=== PATIENT | female | born 1950 | race Caucasian/White ===

== ENCOUNTER 2016-03-10 07:22 | Inpatient (IN) | payer OTHER ==
--- NOTE | 2016-03-10 07:17 | EDPHY ---
H & P HPI/ROS: CHIEF COMPLAINT: Multiple seizures. HISTORY OF PRESENT ILLNESS: This is a 65-year-old female with no seizure history presenting via EMS for multiple seizures this morning. She hit her head ice skating 2 days ago. This morning at 0650 she experienced a 5-8 minute long seizure witnessed by her . Afterwards she was post-ictal but could walk. At 0708 she had a 1 minute tonic-clonic seizure and has been post-ictal ever since. She is responsive to painful stimuli but cannot answer questions and thus the history is limited. EMS established an IV en route and administered 5mg IM Versed. REVIEW OF SYSTEMS: Aside from elements discussed in the HPI, a comprehensive 10-point review of systems was reviewed and is negative. PAST MEDICAL HISTORY: denies. SOCIAL HISTORY: Here with . VITAL SIGNS: Reviewed by me GENERAL: Well-developed. HEENT: Patient has no gag reflex. Atraumatic. Eyes: Pupils 2mm reactive. No icterus, no injection, no nystagmus, no roving eye movements. Mouth: dry mucous membranes. No erythema or lesions. Neck: supple with no adenopathy. LUNGS: Clear to auscultation bilaterally, no wheezes, rhonchi or rales. CARDIAC: Tachycardic. Regular rhythm, no rubs, murmurs or gallops. ABDOMEN: Soft, nontender, nondistended, bowel sounds normal. BACK: No CVA tenderness. EXTREMITIES: No trauma. No edema. Range of motion is normal throughout. NEURO: Unresponsive, snoring respirations, responds to painful stimuli. SKIN: Warm and dry, no rash. Portions of this note were transcribed by a medical dermatologist. I personally performed a history, physical exam, medical decision making, and confirmed accuracy of information the transcribed note. Source: EMS Exam Limitations: Clinical condition Constitutional: Initial Vital Signs Heart Rate 130 H 03/10/16 07:25 Respiratory Rate 20 03/10/16 07:25 Blood Pressure 169/84 H 03/10/16 07:25 O2 Sat (%) 97 03/10/16 07:25 O2 Delivery Mode Ventilator O2 (L/minute) 15 Allergies/Adverse Reactions: No Known Allergies Allergy (Unverified 03/10/16 08:17) Home Medications: Medication Instructions Recorded Cholecalciferol Vit D3 [Vitamin D3 1,000 units PO DAILY 03/10/16 (*)] Ferrous Sulfate [Ferrous Sulf 325 325 mg PO DAILY 03/10/16 MG (*)] Multivitamins [Multivitamin (*)] 1 each PO DAILY 03/10/16 [place]-3 Fatty Acids [Fish Oil 1000 1,000 mg PO DAILY 03/10/16 mg (*)] Medical Decision Making - Diagnostics EKG Interpretation: 12-LEAD EKG: Please see the full report in [facility]. My interpretation: Sinus tachycardia, rate 115. ST depression anterolaterally. Imaging: X-ray of the chest was obtained. I viewed the images myself on the PACS system. My interpretation of the images is: good ETT placement. The radiologist interpretation is pending at this time. Study: CT of the head. Indication: Seizures, trauma. Results: Hemorrhage left frontal lobe. The study was read by the radiologist, Dr. Ayala. I viewed the images myself on the PACS system. Procedures: Procedure: Rapid sequence intubation. Indication for the procedure was seizures. The patient was preoxygenated with 100% oxygen by face mask. The patient was given the following IV medications: 20mg IV Etomidate, 120mg IV succinylcholine. The patient was orally endotracheally intubated under direct visualization with a 7.5 ETT. In line stabilization was performed during the procedure. Tracheal intubation was confirmed with misting on the tube; breath sounds were auscultated equally bilaterally; appropriate color change with [place] Tidal CO2 detector. Chest X-ray shows ETT in good position. The procedure was performed by myself, Dr. Chaudhry. ED Course/Re-evaluation: 0720: I met EMS on arrival and obtained a report from the kettle operator. 0727: RT at bedside. 0729: 20mg IV Etomidate and 120mg IV Succinylcholine administered. Second IV established in right hand. 0730: Patient intubated with a 7.5 ETT (see procedure note). 0733: ISTAT shows creatine of 1.0 and normal electrolytes. EKG taken. 0735: Chest x-ray taken. 0740: I spoke to the patient's . He reported no past medical history including no hypertension or illicit drug use. He told me they were ice skating two days ago and the patient reported in the evening that she had hit the back of her head, but this accident was unwitnessed by the . She does not drink alcohol frequently and had half a glass of wine last night. Labs were ordered on the patient. 0800: Patient has returned from CT. She is moving her arms more spontaneously at this time. CT scan demonstrates hemorrhage, unclear epidural versus subdural versus hemorrhage into a mass. 0810: Consulted with Dr. Klein, neurosurgery. He has reviewed the patient's images and recommends MRI. 0854: Consulted with Isabelle Katz, hospitalist. 0922: Consulted with [facility] who reports that the patient has not had any labs since 2007. I informed them the patient is being admitted to the ICU here. 0925: Consulted with Dr. Sun, neurology. Patient admitted to the ICU following her MRI. Differential Diagnosis: Differential diagnosis of the patient's seizure was considered including but not limited to electrolyte abnormality, intracranial hemorrhage, trauma, mass, head injury, meningitis, encephalitis, and breakthrough seizure. Critical Care Time: I spent a total of 45 minutes of critical care time including but not limited to obtaining history, performing a physical exam, ordering interventions and the bedside monitoring of those interventions, collecting and interpreting tests and discussion with consultants but not including time spent performing procedures. - Data Points Laboratory Results: Laboratory Results 03/10/16 07:31 03/10/16 07:31 Medications Given: Discontinued Medications Etomidate (Etomidate) 20 mg IVP EDNOW ONE Stop: 03/10/16 08:10 Last Admin: 03/10/16 07:29 Dose: 20 mg Sodium Chloride (Ns) 1,000 mls @ 0 mls/hr IV ONCE ONE PRN Reason: Wide Open Stop: 03/10/16 08:11 Last Admin: 03/10/16 07:45 Dose: 1,000 mls Levetiracetam 1,000 mg/ Sodium (Chloride) 110 mls @ 440 mls/hr IV EDNOW ONE Stop: 03/10/16 09:05 Last Admin: 03/10/16 10:30 Dose: 110 mls Succinylcholine Chloride (Quelicin) 120 mg IVP EDNOW ONE Stop: 03/10/16 08:10 Last Admin: 03/10/16 07:30 Dose: 120 mg Departure - Departure Disposition: [facility] Clinical Impression: Seizures, Intracranial hemorrhage Condition: Serious Report Scribed for: Lola Chaudhry Report Scribed by: Victor M Sampson Date of Report: 03/10/16 Time of Report: 07:17
[2016-03-10] MEDS ORDERED: PROPOFOL/EMULSION 1,000 MG/100 ML BOTTLE IV ONE (07:30)
[2016-03-10] MEDS: PROPOFOL/EMULSION 100 ML IV SCH ×10 (07:40→10:31)
[2016-03-10] MEDS ORDERED: SUCCINYLCHOLINE CHLORIDE*ANESTHESIA ONLY*200 MG/10 ML SYR IVP ONE (07:52)
[2016-03-10] MEDS ORDERED: ETOMIDATE 40 MG/20 ML INJ ONE (07:52)
[2016-03-10 08:01] LABS: % IMMATURE GRANULYOCYTES 0.6 % (0.0-1.1); ABSOLUTE IMMATURE GRANULOCYTES 0.06 10^3/uL (0.00-0.10); ADD DIFF? NO; ADD MORPH? NO; ADD SCAN? NO; ATYPICAL LYMPHOCYTE FLAG 10 (0-99); FRAGMENT RBC FLAG 0 (0-99); HEMATOCRIT 49.1 % (38.0-47.0); HEMOGLOBIN 16.6 g/dL (12.6-16.3); LEFT SHIFT FLG 0 (0-99); LIPEMIA HEMOLYSIS FLAG 90 (0-99); MEAN CELL HEMOGLOBIN 32.2 pg (27.9-34.1); MEAN CELL HEMOGLOBIN CONCENTR. 33.8 g/dL (32.4-36.7); MEAN CELL VOLUME 95.3 fL (81.5-99.8); MEAN PLATELET VOLUME 11.4 fL (8.7-11.7); PLATELET CLUMPS FLAG 10 (0-99); PLATELET COUNT 57 10^3/uL (150-400); RED BLOOD CELL COUNT 5.15 10^6/uL (4.18-5.33); RED CELL DISTRIBUTION WIDTH 12.4 % (11.5-15.2)
[2016-03-10 08:03] LABS: ANION GAP 27 mEq/L (8-16); CALCIUM 9.3 mg/dL (8.5-10.4); CARBON DIOXIDE 13 mEq/l (22-31); CHLORIDE 105 mEq/L (97-110); GLOMERULAR FILTRATION RATE 55; GLUCOSE 132 mg/dL (70-100); POTASSIUM 3.9 mEq/L (3.5-5.2); SODIUM 145 mEq/L (134-144)
[2016-03-10] MEDS ORDERED: SUCCINYLCHOLINE CHLORIDE 200 MG/10 ML VIAL IVP ONE (08:09)
[2016-03-10] MEDS ORDERED: ETOMIDATE 20 MG/10 ML VIAL IVP ONE (08:09)
[2016-03-10] MEDS ORDERED: NS 1,000 ML IV ONE (08:10)
[2016-03-10 08:14] LABS: TROPONIN I < 0.012 ng/mL (0-0.034)
[2016-03-10 08:17] LABS: INR 1.01 (0.83-1.16); PROTIME(PATIENT) 13.2 SEC (12.0-15.0)
[2016-03-10 08:27] LABS: BASE EXCESS -7.5 mEq/L (-2.5-2.5); BICARBONATE 19 mEq/L (22-26); MEASURED OXYGEN SATURATION 96 % (92-95); PCO2 41 mmHg (34-38); PO2 98 mmHg (65-75); TCO2 20 mEq/L (23-27)
[2016-03-10 08:29] LABS: O2 CONCENTRATIION 100 % (0-100); P/F RATIO 98 RATIO; SIMV YES
--- NOTE | 2016-03-10 08:41 | CPEKG ---
Heart Rate: 115 RR Interval: 522 P-R Interval: 188 QRSD Interval: 86 QT Interval: 320 QTC Interval: 443 P [place]: 62 QRS [place]: 85 T Wave [place]: 13 EKG Severity - BORDERLINE ECG - EKG Impression: SINUS TACHYCARDIA EKG Impression: BORDERLINE RIGHT AXIS DEVIATION EKG Impression: MINIMAL ST DEPRESSION, ANTEROLATERAL LEADS Electronically Signed By: Lola Chaudhry 10-Mar-2016 18:11:56
[2016-03-10] MEDS ORDERED: levETIRAcetam 1,000 MG in NS 100 ML IV ONE (08:51)
--- NOTE | 2016-03-10 09:08 | DX ---
Chest, One View Portable March 10, 2016 at 0736 Hours History: Endotracheal, seizures, close head injury two days ago. Comparison: None. Findings: Cardiac silhouette is normal in size. No pneumonia, congestive heart failure, pleural effu vipul, or pneumothorax. Endotracheal tube 2 cm above the juliette. Impressions: 1. Endotracheal tube above the juliette. 2. No pneumothorax or definite pulmonary contusion.
--- NOTE | 2016-03-10 09:21 | CT ---
CT Brain (Without Contrast) March 10, 2016 at 0755 Hours History: Seizures, closed head injury, fall ice skating two days ago. Comparison: None. Technique: Axial computed tomographic images of the brain without contrast. Dose reduction techniques were utilized. Findings: Acute extraaxial hemorrhage in the left frontal convexity parafalcine region, measuring 3 x 2.2 x 1.6 cm, resulting in mass effect on the left frontal lobe which is displaced inferiorly. This appears round and may represent subdural or epidural hematoma. There is an adjacent left parafalcine subdural hematoma extending anteriorly and posteriorly, measuring up to 4 mm thick. Resulting mass ef fect from the left frontal extraaxial hemorrhage results in 4 mm of rightward midline shift in the up per falx region, although the lateral ventricles appear not significantly displaced. No hydrocephalus . No intraventricular hemorrhage. Smaller region of subarachnoid hemorrhage more anteriorly in the le ft frontal lobe region. No definite intraparenchymal hemorrhage. No evidence of acute infarct. No shaniqua dence of skull fracture. Paranasal sinuses and mastoid air cells are clear. Impressions: 1. Multiple foci of extraaxial hemorrhage along the left frontal convexity with a more focal 3 x 2.2 x 1.6 cm ovoid extraaxial acute hemorrhage, resulting in mild mass effect. This may represent a compl ex epidural or subdural hematoma versus less likely hemorrhage from extraaxial neoplasm or meningioma . 2. Left frontal parafalcine subdural hematoma and additional regions of subarachnoid hemorrhage with mild midline shift. Findings and recommendations discussed with emergency department physician, Dr. Lola Chaudhry at 0805 hours today. Findings also discussed with Dr. Klein, neurosurgery. Final report concurs with initial preliminary interpretation. A test result has been communicated to a licensed care provider and documented in [facility], 10:01:36 A M, 03/10/2016, [facility] Message ID [id number].
[2016-03-10] MEDS ORDERED: GADOBUTROL 10 ML VIAL IVP ONE (09:24)
[2016-03-10] MEDS ORDERED: niCARdipine/NACL 200 ML IV PRN (09:28)
[2016-03-10] MEDS ORDERED: NS W/ 20 KCl/L 1,000 ML IV SCH (09:30)
[2016-03-10 09:45] LABS: ATYPICAL LYMPHOCYTE FLAG 0 (0-99); FRAGMENT RBC FLAG 0 (0-99); LEFT SHIFT FLG 0 (0-99); LIPEMIA HEMOLYSIS FLAG 90 (0-99)
[2016-03-10 09:48] LABS: PLATELET CLUMPS FLAG 300 (0-99)
--- NOTE | 2016-03-10 10:37 | GHP ---
[f rep st] HISTORY AND PHYSICAL DATE OF ADMISSION: 03/10/2016 ER Consultation/H and P REASON FOR EVALUATION: Altered mental status status post seizure with prior history of head injury 2 days ago. HISTORY OF PRESENT ILLNESS: Please note the following information was obtained from the patient's as well as Dr. Chaudhry, the emergency room physician , as the patient was unable to provide it herself secondary to being intubated. This is an otherwise very healthy 65-year-old woman who was otherwise in very good health. She was out ice skating approximately 2 days ago with her grandchildren when she did fall and hit her head striking the ice. She did not make a big deal of this and just noted it to her the following morning when she had a goose egg on the posterior aspect of her scalp. She had been doing well for approximately 2 days, and then was having coffee and reading the paper this morning with her when he noticed that she was not responding. She was noted to have clonic seizures. There was no traumatic event and he lowered her to the ground, and EMS was called. She was brought by EMS to [facility] for further evaluation and management. She underwent a head CT without contrast, at which point she was found to have an extraaxial lesion approximately 2 cm in size over the left frontal lobe and, therefore, neurosurgical consult was requested. She was given Versed en route by EMS and is currently on propofol, and is intubated upon my evaluation. REVIEW OF SYSTEMS: A complete 10-point review of systems was reviewed from the patient's medical record and negative except for that in the HPI. PAST MEDICAL HISTORY: Negative. SOCIAL HISTORY: The patient is . No tobacco use. FAMILY HISTORY: Negative for any brain tumors or aneurysms. PHYSICAL EXAMINATION: VITAL SIGNS: Heart rate is 130, respiratory rate is 20, blood pressure 116/84. O2 sat 97%, currently intubated with O2 15 L/minute. GENERAL: The patient is lying on the gurney, is currently intubated. NEUROLOGIC: Her pupils are approximately 5 mm bilaterally and briskly reactive in both direct and consensual examination. Her extraocular movements appear to be intact. Throughout the course of the examination, I have the patient's sedation turned off and she is very purposeful in trying to grab for her ET tube. She is not following commands at the moment but is very purposeful. She opens her eyes to voice, whereas previously she was not opening her eyes or moving to stimulation upon my first encounter with her. She is moving all 4 extremities symmetrically and appears to be purposeful. The remainder of the neurologic examination is deferred secondary to the patient's inability to participate and being intubated and sedated. MEDICAL IMAGING: The patient underwent a head CT without contrast which was reviewed by me in the [facility] PACS system. There is demonstration of some traumatic subarachnoid hemorrhage as well as a left frontal approximately 2.5 X 3 cm extraaxial hyperdensity with some focal mass affect on the left frontal lobe. It appears to be a loculated lesion consistent with a hemorrhage within a brain tumor versus extraaxial just hemorrhage, organized and loculated. No skull fractures identified. No other midline shift or mass affect identified. LABS: White count is 9.79, hematocrit 49.1, platelets are 57. INR is 1.01, PT is 13.1. Sodium 145, potassium 3.9, BUN of 18 and creatinine of 1.8. MEDICATIONS: None for the patient. ALLERGIES: No known drug allergies. ASSESSMENT AND PLAN: The patient is otherwise a very healthy 65-year-old woman who presents to the emergency department with several seizures and a history of trauma approximately 2 days ago with a left frontal extraaxial mass causing very focal mass affect with no other skull fractures or midline shift. Her platelets are noted to be 57. At this point, I think the patient's altered mental status is more secondary to her seizures and less so to the extraaxial mass. I did review the films with her who is at the bedside. At this point, we are going to obtain a MRI with and without contrast as well as an MRV to further delineate this lesion. We will also transfuse the patient 1 pack of platelets to ensure that the platelet count is closer to 80,000 and higher with the recent trauma and possible hemorrhage. At this point, the patient appears to be waking up and we will obtain a neurology consult to help manage her seizure medications, although we will load her with Keppra 1000 mg in the ER this morning. We will also plan to admit her to the intensive care unit and plan on extubation with the assistance of the medical/critical care service. I did explain all this to the patient's who is in agreement with the treatment plan, as well as Dr. Chaudhry, the emergency room treating physician. If the patient declines, there may be a possibility of surgical intervention; however, at this point, there are no plans for that. /[id number]/MODL KAMALA
--- NOTE | 2016-03-10 11:12 | MR ---
MR Venogram of the Brain 1041 hours History: Seizure, intracranial hemorrhage, recent trauma. Technique: Phase contrast GRE and coronal 2D time of flight MR venogram images of the brain were obta ined without contrast. Findings: Cerebral veins and sinuses including the superior sagittal sinus, transverse sinuses, sigmo id sinuses, and internal cerebral veins appear patent without definite evidence of thrombosis. Impression: No definite evidence of superior sagittal sinus thrombosis.
[2016-03-10 11:52] LABS: HEMATOCRIT 38.3 % (38.0-47.0); HEMOGLOBIN 13.6 g/dL (12.6-16.3); MEAN CELL HEMOGLOBIN 31.6 pg (27.9-34.1); MEAN CELL HEMOGLOBIN CONCENTR. 35.5 g/dL (32.4-36.7); MEAN CELL VOLUME 89.1 fL (81.5-99.8); RED BLOOD CELL COUNT 4.3 10^6/uL (4.18-5.33); RED CELL DISTRIBUTION WIDTH 12.4 % (11.5-15.2)
--- NOTE | 2016-03-10 12:04 | MR ---
MRI of the Brain (Without and With Contrast) March 10, 2016 at 0952 Hours Clinical Indication: Seizure, left frontal subarachnoid and extraaxial hemorrhages, recent fall, ice skating trauma. Comparison: CT brain dated March 10, 2016. Technique: T1-weighted images were acquired axially and sagittally from the foramen magnum to the trin[place] carlos. Axial fast inversion recovery, fast T2-weighted, and diffusion-weighted axial images were obtai niesha without contrast. Postcontrast axial, coronal, and sagittal T1-weighted images with the uneventfu l intravenous administration of 5.5 mL Gadavist contrast. Findings: Limited due to patient motion artifact. Left frontal convexity extraaxial nonenhancing 3 x 2.2 cm lesion demonstrates hemosiderin on the SWI series consistent with extraaxial hemorrhage. No associated enhancement to suggest meningioma or dura l metastasis. Diffuse subarachnoid hemorrhage throughout the left frontal convexity. Left frontoparie janneth extraaxial subdural hematoma extending throughout the entire convexity into the temporal and occi pital lobe regions, measuring up to 6 mm in thickness with mild mass effect. Mild midline shift towar ds the right approximately 3 mm. Left parafalcine acute subdural hematoma also noted up to 3 mm thick . No definite intraparenchymal hemorrhage. No hydrocephalus. No postcontrast enhancing lesions. Diffu vipul-weighted images demonstrate no acute infarct. Cerebellar tonsils are in normal position. Pituita ry gland is normal in size. Normal signal flow-void in the superior sagittal sinus, basilar artery, a nd bilateral internal carotid arteries indicating patency. Postcontrast images demonstrate no enhanci ng lesions or abnormal leptomeningeal enhancement. Paranasal sinuses and mastoid air cells are clear. Impressions: 1. Acute left frontal subarachnoid hemorrhage. 2. Acute diffuse left cerebral subdural hematoma. Left parafalcine acute subdural hematoma. 3. Left frontal convexity 3 x 2.2 cm extraaxial nonenhancing hemorrhage. 4. No intraaxial enhancing lesions. 5. Minimal midline shift. Findings and recommendations discussed with emergency department physician, Dr. Lola Chaudhry at 1115 hours today. Final report concurs with initial preliminary interpretation.
--- NOTE | 2016-03-10 12:33 | GCON ---
[f rep st] CONSULTATION CRITICAL CARE CONSULTATION DATE OF CONSULTATION: 03/10/2016 REQUESTING PHYSICIAN: Dr. Klein. CHIEF COMPLAINT: Seizure. HISTORY OF PRESENT ILLNESS: This 65-year-old female fell while ice skating 2 days ago. She had no p roblems immediately after falling but the next morning did notice a lump in the back of her head from where she had fallen and hit her head. She did well yesterday but then this morning, while sitting with her having coffee, she had a blank look on her face for few moments and then had a tonic -clonic seizure involving her arms. Paramedics were called and she was felt to have inadequate airwa y and ventilation, and was intubated. Head CT shows some bleeding over the left frontal lobe and she was seen by Dr. Klein in the emergency room. Versed and propofol were given as intermittent doses, not as continuous IV infusion. At the time that I see her in the ICU, she has not had any recent se dation and is awake and able to nod and shake her head appropriately. Her and [id number] are present. They are able to provide the rest of her history. There is no history of other head tr auma or any central nervous system problems. The patient herself says that over the past several mon ths, she has noticed increased bruising over arms and legs. PAST MEDICAL HISTORY: No surgery or hospitalizations. MEDICATIONS: Calcium and vitamins as supplement. ALLERGIES TO MEDICATIONS: None. FAMILY HISTORY: Without cancer or early arteriosclerotic vascular disease. 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 REVIEW OF SYSTEMS: Otherwise noncontributory x11 points. PHYSICAL EXAMINATION: VITAL SIGNS: Blood pressure is 107/77, with a pulse 68, respiratory rate of 1 8, oxygen saturation of 100% on 40% FiO2 on the ventilator, and she is afebrile. SKIN: Normal. HEA D: There is a small area of ecchymosis over the left posterior scalp. EYES: Fundi not visualized. EARS: Canals clear. NOSE: Without septal deviation or polyps. MOUTH AND PHARYNX: Clear without lesions. An endotracheal tube is in place in the oropharynx. NECK: Not tender. There is no adenop athy. CHEST: Clear to auscultation and percussion. HEART: PMI 5th intercostal space, midclavicula r line. S1 and S2 are normal. There is no S3, S4 or murmur. ABDOMEN: Soft, without organomegaly o r masses. I do not feel a spleen. Bowel sounds are faint and there is no tenderness. EXTREMITIES: Full range of motion without clubbing, cyanosis, or peripheral edema. DATABASE: Head CT shows multiple foci of hemorrhage along the left frontal cortex with a focal 3 x 2 .2 x 1.6 area. Chest x-ray shows no acute infiltrates. The white blood count is 9790 with hematocri t of 49, but platelets are reduced at 57,000. INR is 1.0. Arterial blood gas, PO2 98, pCO2 41, pH 7 .28, that was done almost 4 hours ago. Chemistry panel initially showed a low bicarbonate of 13, whi ch had increased to 19 later on. The nonfasting blood sugar is 135. IMPRESSION: 1. Intracerebral hemorrhage. 2. Thrombocytopenia. Question whether that is a lab error although the patient herself has noticed increased bruising recently and she does have bruises over her arms and legs that she says are new ov er the past few months. PLAN: The patient will be extubated as she has excellent weaning parameters at this point, having re covered from the Versed and propofol. Repeat CBC will be done and a 10-unit platelet pack has been o rdered. /[id number]/MODL
--- NOTE | 2016-03-10 14:08 | GCON ---
[f rep st] CONSULTATION NEUROLOGY CONSULTATION DATE OF CONSULTATION: 03/10/2016 REFERRING PHYSICIAN: Lola Chaudhry MD CHIEF COMPLAINT: Acute repetitive seizures. 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 She is otherwise healthy and does not take prescription medications in the background. Apparently, 2 days ago she was ice skating and slipped on ice and hit the back of her head. She did not have any significant acute symptoms and is doing well from that minor injury. However, this morning around 6:50 a.m., she had a sudden blank stare on her face, according to the records, when sitting with her , and then went into a 5-8 minute prolonged convulsive seizure. EMS was activated. After the seizure, she was postictal, but was able to ambulate and then about 1 hour later she had a second 1-minute tonic-clonic seizure and remained significantly postictal without a gag reflex, according to the Emergency Department. She was intubated for airway protection and admitted to the ICU. She did get some Versed at 5 mg IM en route. Initial head CT in the Emergency Department showed left frontal intracranial hemorrhage. Neurosurgery was consulted and Dr. Klein evaluated the patient. Brain MRI and MRA was performed. MRI brain shows an acute left frontal subarachnoid hemorrhage and coexisting acute diffuse left cerebral subdural hematoma and left parafalcine acute subdural hematoma. There was also some hemorrhage in the left frontal convexity. There is no underlying mass noted. MRA shows no venous thrombosis. The patient received 1000 mg of IV Keppra in the ER and has remained seizure- free. She is now extubated and doing well, lucid. In terms of initial laboratory workup, she was found to have an isolated thrombocytopenia with initial platelets at 57 and repeat CBC at 50. The patient does not know of any blood dyscrasias in herself, but states there is a family history of "blood problems" in her mother. She did not know any specific diagnosis. PAST MEDICAL HISTORY: None. FAMILY HISTORY: Perhaps some blood disorder in her mother. No neurologic family history. 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 . No tobacco use. PHYSICAL EXAM: VITAL SIGNS: Her blood pressure is 116/67, she is afebrile at 36.7, O2 saturations are at 100%. She is extubated now. Heart rate is 80 and regular, respirations are 13-18. GENERAL: The patient was awake and alert when I examined her and able to answer my questions normally. HEENT: Her voice was soft from recent extubation. CRANIAL NERVES: Face was symmetric. No facial weakness. Extraocular movements were full. Tongue was midline. Voice was soft as noted above from extubation. Normal cranial nerves II-VII, XII and XII. MOTOR: She has normal strength throughout formal power testing. There may have been slight pronator drift on the right. Reflexes were symmetric throughout. SENSORY: Normal to light touch in all 4 extremities. COORDINATION: Normal in upper and lower extremities. No convulsive activity or myoclonus on exam. IMPRESSION AND PLAN: 1. Traumatic left hemisphere intracranial hemorrhage. 2. Isolated thrombocytopenia. 3. Acute repetitive seizures secondary to traumatic intracranial hemorrhage. The patient was awake and lucid when I consulted with her. I counseled her regarding the nature of her injury and the secondary seizures. I recommend she stay on Keppra 750 mg b.i.d. indefinitely at this point, including as an outpatient (in either pathway of treatment) - in terms of intracranial hemorrhage, whether it be observation or intervention. I counseled her as such. We discussed potential risks, benefits, and alternatives of Keppra, including moodiness, irritability, and depression/suicidal ideation. She let me know she is a [facility] patient and she would need to follow up with [facility] as an outpatient. That certainly is reasonable. The definitive management of the intracranial hemorrhage will be per Neurosurgery. Lastly, Hematology/Oncology has been consulted to further evaluate and treat the patient's thrombocytopenia. She does have obvious chronic bruising on her arms. No further recommendations now. I will put in the orders for Keppra. We will continue to follow the patient as needed. Thank you for this consultation. /[id number]/MODL MTDD
[2016-03-10 14:10] LABS: % IMMATURE GRANULYOCYTES 0.4 % (0.0-1.1); ABSOLUTE IMMATURE GRANULOCYTES 0.03 10^3/uL (0.00-0.10); ADD DIFF? NO; ADD MORPH? NO; ADD SCAN? NO; ATYPICAL LYMPHOCYTE FLAG 0 (0-99); FRAGMENT RBC FLAG 0 (0-99); HEMOGLOBIN 12.7 g/dL (12.6-16.3); LEFT SHIFT FLG 0 (0-99); LIPEMIA HEMOLYSIS FLAG 90 (0-99); MEAN CELL HEMOGLOBIN 32.6 pg (27.9-34.1); MEAN CELL HEMOGLOBIN CONCENTR. 36.3 g/dL (32.4-36.7); MEAN CELL VOLUME 89.7 fL (81.5-99.8); MEAN PLATELET VOLUME 10.1 fL (8.7-11.7); PLATELET CLUMPS FLAG 0 (0-99); PLATELET COUNT 82 10^3/uL (150-400); RED CELL DISTRIBUTION WIDTH 12.3 % (11.5-15.2)
[2016-03-10 14:25] LABS: APTT 24.1 SEC (23.0-38.0); INR 0.99 (0.83-1.16)
[2016-03-10 14:26] LABS: FIBRINOGEN 361 mg/dL (214-456)
--- NOTE | 2016-03-10 14:38 | GCON ---
[f rep st] CONSULTATION HEMATOLOGY-ONCOLOGY CONSULTATION. REASON FOR CONSULTATION: Thrombocytopenia in the setting of subdural hematoma. RECOMMENDATIONS: Recheck platelet count post transfusion to see if it rises. If it rises, it implie s that if there was any consumption, it is no longer occurring. Secondly, I did a DIC screen. 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 She, at the time she fell, did not have any loss of consciousness and went on to continue her day and went out to dinner, and even went up to the [place] on [facility]. Saturday she had a n uneventful day and then today she woke up and had generalized clonic-tonic activity apparently invo lving her arms. She was intubated and brought into the emergency room where she was found to have a left subdural hematoma. The patient does not have any shift and she actually had 2 seizures, 1 at ho in and then [address] to [address] hospital. She says she bruises easily but otherwise really had no si gnificant problems in the past. She has had no major surgery. She has had some dental extractions w ithout any bleeding problems, and she has had no family history of bleeding. When she presented here she had a normal hemoglobin of around 16.6, and a platelet count of 57, and a white count of 9.75. It was repeated later and the white count was 9.8, the hemoglobin was 13.6, and the platelet count wa s 50,000. She has been given a unit of platelets. She is alert and oriented, and doing fine. A dec ision so far from Neurosurgery is to apparently wait and watch, although following her very closely. She also, I should note from the report, a diffuse left cerebral subdural hematoma, as well as having a left frontal subarachnoid hemorrhage. She does not have any significant mild line shift, and there is no skull fracture. PAST MEDICAL HISTORY: Really otherwise completely unremarkable. FAMILY HISTORY: Reveals her father in his 70s from myocardial infarction. Her mother of b reast cancer in her 70s. She has 1 sibling, a sister who is healthy. She has no family history of a ny bleeding disorders. SOCIAL HISTORY: Reveals she has been for 33 years and they have 2 healthy children without a ny bleeding disorder. 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 REVIEW OF SYSTEMS: Currently doing well. She is not having any confusion and is able to give a deta iled history. PHYSICAL EXAMINATION: Clinical exam revealed no focal neurologic symptoms. She has no scleral icter us. The neck is free of adenopathy. The lungs are clear to P and A. CVS: S1 normal. S2 normally split. There is no S3, S4 or murmur. Her abdomen is free of hepatosplenomegaly and there is no extr emity edema or calf tenderness. Neurologically, she is intact. ASSESSMENT: The patient is presenting with thrombocytopenia of undetermined etiology. It is not ass ociated with anything that looks leukemia and will see if it is a consumption coagulopathy or TIP. W ill use a platelet transfusion to find out and evaluate for DIC, although she does not appear to have a sepsis. /[id number]/MODL
--- NOTE | 2016-03-10 16:31 | CT ---
CT Scan of the Head (Without Contrast) Clinical Indications: 65-year-old female who had a recent fall while ice-skating, sustaining a seizur e and noted to have left frontal subarachnoid hemorrhage and subdural hematoma, presenting for follow up. Technique: Standard axial CT images were acquired from the foramen magnum to the skull vertex. Soft tissue, subdural, and bone windows are reviewed. Dose reduction techniques were utilized. Images are reformatted at 5.00 and 1.50 mm increments, and parasagittal and paracoronal reconstructed images ar e also provided. Comparison Studies: CT and MR imaging from earlier today. Findings: There is a stable superior left frontal convexity extra-axial focus of increased attenuati on (suggestive of blood), measuring 2.5 x 4.0 cm (transverse diameter) x 1.6 cm cephalocaudal diamete r, and by my retrospective measurement on the study performed at 7:55 a.m. this measured 4.0 x 2.5 x 1.6 cm as well. Diffuse subarachnoid hemorrhage involving the superior left frontal convexity is unch anged, and there is a tiny stable left parafalcine subdural hematoma measuring 3 mm in diameter. Ther e is a small focus of left frontal subdural hemorrhage noted on series 3 image 62, which is unchanged . The ventricles and basilar cisterns remain stable in size, and symmetrical in configuration. There is no new midline shift. There is a small right occipital scalp hematoma noted on series 3, image 53, with no underlying skull fracture. The orbits, paranasal sinuses, and the mastoids are unremarkable. The craniocervical junction appears normal, as is the sella turcica and the calcified pineal gland. Impression: There has been no significant interval change since the previous study at 7:55 a.m. today .
--- NOTE | 2016-03-10 16:43 | GCON ---
[f rep st] CONSULTATION DATE OF CONSULTATION: 03/10/2016 REFERRING PHYSICIAN: Antoin Klein MD REASON FOR CONSULTATION: Management of medical problems. HPI: Patient is a 65-year-old female with no significant past medical history, presenting with a seizure. She was ice skating with her grandchildren a couple of days ago and fell and hit her head. A day after the fall she did notice a lump on the back of her head. She was doing well, but this morning she was having coffee with her and had a blank look on her face for a few minutes, and then developed a tonic-clonic seizure involving her upper extremities. Paramedics were called and she was felt to have an inadequate airway and was intubated in the field. Patient did actually have a second 1- minute tonic-clonic seizure according to the emergency department. Neurosurgery was consulted and imaging was ordered. MRI brain shows acute left frontal subarachnoid hemorrhage and coexisting acute diffuse left cerebral subdural hematoma and left parafalcine acute subdural hematoma. Also noted a hemorrhage in the left frontal convexity. There is no underlying mass noted. MRI showed no venous thrombosis. The patient received 100 mg IV Keppra in the emergency room and has remained seizure-free since then. Upon my review, patient was extubated in the ICU. She is answering questions. Patient does report bruising very easily. REVIEW OF SYSTEMS: I completed a 10-point review of systems. Negative except as noted in HPI. FAMILY HISTORY: Perhaps there is some sort of blood disorder in her mother; she is unclear. No history of seizures. 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 . Lives with her here in town. No tobacco or illicits. Occasional alcohol. MEDICATIONS: 1. Fish oil. 2. Vitamin D3. 3. Multivitamin. 4. Iron sulfate. ALLERGIES: No known drug allergies. PHYSICAL EXAMINATION: VITAL SIGNS: Temperature 36.7, blood pressure 100/55, heart rate 80s, respirations 16, 99% on 1 L. GENERAL: Patient appears tired, but she is answering questions appropriately. HEENT: Quiet voice. Oropharynx is clear. She does have a lump on the back of her head and ecchymosis over the left posterior scalp. CV: Regular rate, rhythm. No murmurs, gallops, or rubs. LUNGS: Clear to auscultation anteriorly. ABDOMEN: Soft, nontender, nondistended. Positive bowel sounds. : Bentley in place. MUSCULOSKELETAL: 5 /5, upper and lower extremities. NEURO: 2-12 intact. No focal deficits. SKIN : Warm, dry. Ecchymoses over upper extremities and lower extremities. LABS: WBCs 8.56, hemoglobin 12, hematocrit 35, platelets 82. INR 1.01, PT 13. Sodium 145, potassium 3.9, chloride 105, bicarb 13 (repeat 19), anion gap is 27, glucose 132. Troponin less than 0.012. IMAGING: Chest x-ray personally reviewed by me. At the time, endotracheal tube was above juliette. No opacity or effusion. Brain MRI: Impression: 1. Acute left subarachnoid hemorrhage. 2. Acute left cerebral subdural hematoma. 3. Left parafalcine acute subdural hematoma. 4. Left frontal convexity 3 x 2.2 cm non-enhancing hemorrhage. 5. Minimal midline shift. MRA: No evidence of superior sagittal sinus thrombosis. EKG is personally reviewed by me. Heart rate is tachy, 115. Borderline right axis deviation. Minimal ST depression, anterolateral leads. ASSESSMENT AND PLAN: 1. Traumatic left hemisphere intracranial hemorrhage: secondary to fall. Neurosurgery was consulted. Imaging demonstrated acute left frontal subarachnoid hemorrhage, acute left cerebral left subdural hematoma, and a left parafalcine acute subdural hematoma. Monitor in the ICU with serial neuro checks. Neurosurgery is on board. PT/OT/FABRICATOR SPECIAL ITEMS evaluations. 2. Acute seizure: This is secondary to a traumatic intracranial hemorrhage. Appreciate Dr. Sun with Neurology consulting. Patient was loaded with Keppra in the emergency room and will continue 750 mg b.i.d. indefinitely. 3. Thrombocytopenia. Platelets initially 50. Receiving transfusion. She is unclear about a blood disorder in the family. Will have HEM/ONC evaluate patient. DIC panel pending. 4. Metabolic acidosis, likely secondary to acute seizures. Will monitor with repeat BMP. DIET: Awaiting speech evaluation. DVT PROPHYLAXIS: SCDs. DISPOSITION: Patient warrants ICU hospitalization given acute traumatic intracranial hemorrhage with subsequent seizures. Will continue Keppra and serial neuro checks. /[id number]/MODL MTDD
[2016-03-10 16:47] LABS: PLATELET COUNT 82 10^3/uL (150-400)
[2016-03-10] MEDS: ACETAMINOPHEN 325 MG TAB PO PRN ×2 (17:05→21:02)
[2016-03-10] MEDS: levETIRAcetam 500 MG TAB PO SCH (20:58)
[2016-03-10] MEDS: SENNOSIDES/DOCUSATE SODIUM TAB PO SCH (20:59)
[2016-03-10] MEDS: FAMOTIDINE 20 MG TAB PO SCH (20:59)
[2016-03-11] MEDS: ACETAMINOPHEN 325 MG TAB PO PRN ×2 (03:34→20:16)
[2016-03-11 05:38] LABS: % IMMATURE GRANULYOCYTES 0.4 % (0.0-1.1); ABSOLUTE IMMATURE GRANULOCYTES 0.03 10^3/uL (0.00-0.10); ADD DIFF? NO; ADD MORPH? NO; ADD SCAN? NO; ATYPICAL LYMPHOCYTE FLAG 0 (0-99); FRAGMENT RBC FLAG 0 (0-99); HEMATOCRIT 33.7 % (38.0-47.0); HEMOGLOBIN 12.2 g/dL (12.6-16.3); LEFT SHIFT FLG 0 (0-99); LIPEMIA HEMOLYSIS FLAG 90 (0-99); MEAN CELL HEMOGLOBIN 32.2 pg (27.9-34.1); MEAN CELL HEMOGLOBIN CONCENTR. 36.2 g/dL (32.4-36.7); MEAN CELL VOLUME 88.9 fL (81.5-99.8); MEAN PLATELET VOLUME 10.1 fL (8.7-11.7); PLATELET CLUMPS FLAG 20 (0-99); PLATELET COUNT 107 10^3/uL (150-400); RED BLOOD CELL COUNT 3.79 10^6/uL (4.18-5.33); RED CELL DISTRIBUTION WIDTH 12.1 % (11.5-15.2)
[2016-03-11 05:58] LABS: ANION GAP 8 mEq/L (8-16); CALCIUM 8.5 mg/dL (8.5-10.4); CARBON DIOXIDE 24 mEq/l (22-31); CHLORIDE 110 mEq/L (97-110); CREATININE 0.7 mg/dL (0.6-1.0); GLOMERULAR FILTRATION RATE > 60; GLUCOSE 94 mg/dL (70-100); POTASSIUM 3.8 mEq/L (3.5-5.2); SODIUM 142 mEq/L (134-144)
[2016-03-11] MEDS: FAMOTIDINE 20 MG TAB PO SCH ×2 (08:11→20:16)
[2016-03-11] MEDS: SENNOSIDES/DOCUSATE SODIUM TAB PO SCH ×2 (08:11→20:17)
[2016-03-11] MEDS: levETIRAcetam 500 MG TAB PO SCH ×2 (08:12→20:15)
--- NOTE | 2016-03-11 08:40 | HOSPPROG ---
Hospitalist Progress Note Assessment/Plan: 1. Traumatic intracranial hemorrhage -serial neuro checks -SBP at goal <150 -platelets improved >100 today -repeat CTH today 2. Seizure -due to hemorrhage -Keppra BID 3. Thrombocytopenia -2 units of platelets yesterday -pt states it's familial -needs further outpatient evaluation 4. Diet: regular 5. DVT px: SCDs 6. Disp: likely DC tomorrow Med will sign off. please call if can be of further assistance. Thank you Subjective: no GONSALEZ or dizziness Objective: Vital Signs Temp Pulse Resp BP Pulse Ox 36.7 C 85 19 111/65 97 03/11/16 07:00 03/11/16 08:00 03/11/16 08:00 03/11/16 08:00 03/11/16 08:00 Laboratory Results 03/11/16 05:30 03/11/16 05:30 03/10/16 03/11/16 03/12/16 05:59 05:59 05:59 Intake Total 3519 199 Output Total 1600 Balance 1919 199 PT 13.0 SEC (12.0-15.0) 03/10/16 14:00 INR 0.99 (0.83-1.16) 03/10/16 14:00 - Physical Exam Constitutional: no apparent distress Eyes: PERRL Ears, Nose, Mouth, Throat: moist mucous membranes, hearing normal Cardiovascular: regular rate and rhythym, no murmur, rub, or gallop Respiratory: no respiratory distress, no rales or rhonchi Gastrointestinal: normoactive bowel sounds, soft, non-tender abdomen Genitourinary: no bladder fullness Skin: warm, other (ecchymoses over UE, LEs) Musculoskeletal: full muscle strength, other (small posterior hematoma) Neurologic: AAOx3 Psychiatric: interacting appropriately ICD10 Worksheet Patient Problems: Problems Problem Status Diagnosed Intracranial hemorrhage Acute Seizures Acute
--- NOTE | 2016-03-11 08:46 | NEUSURGPN ---
Assessment/Plan: 65 y F with left frontal SDH and seizures - doing well overall - will transfer to the floor today with q4 hour neuro checks - defer AEDs to Neurology - appreciate their input - will defer her hematology work-up to Dr Chwo (thank you for assistance) - her platelets are 102 - our target is > 80 (preferable > 100K) - therapies - likely dc home tomorrow if continues to do well - goal SBP < 150 - appreciate Medicine input into her other issues - plan discussed with the patient and her Subjective: No complaints this morning Objective: Awake and alert X 3 NATHAN X 4 symmetric with good strength throughout Intact sensation throughout face symmetric and speech fluent MRI/MRa - no abnormal vascular findings and patent sinuses CT head - stable 3 X 2.2 cm left frontal hematoma Neuro Check Frequency: q4 Urinary Catheter in Place: No - Physician Discussed Patient with : [facility] Physical Exam - Vitals, I&O, Labs I and O 03/10/16 03/11/16 03/12/16 05:59 05:59 05:59 Intake Total 3519 199 Output Total 1600 Balance 1919 199 Weight 54.683 kg Intake: Oral (ml) 800 IV Infused (ml) 2319 199 NS W/ 20 KCl/L 1,000 ml @ 1319 199 100 mls/hr IV CONT IBAN Rx#:[id number] Platelets (ml) 400 Output: Urine (ml) 1600 Catheter 950 Toilet 650 Other: Number of Voids Toilet 2 1 Vital Signs Temp Pulse Resp BP Pulse Ox 36.7 C 85 19 111/65 97 03/11/16 07:00 03/11/16 08:00 03/11/16 08:00 03/11/16 08:00 03/11/16 08:00 Laboratory Results 03/11/16 05:30 03/11/16 05:30 ICD10 Worksheet Patient Problems: Problems Problem Status Diagnosed Intracranial hemorrhage Acute Seizures Acute
--- NOTE | 2016-03-11 10:47 | SOAPPROG ---
Downtime Inpatient MD Late Entry SOAP Note: Discussed with Dr. Klein, no active trauma surgical issues/will sign off care for now Please reconsult sher Mercer MD, FACS
--- NOTE | 2016-03-11 13:36 | CT ---
CT Scan of the Head (Without Contrast) Clinical Indications: 65-year-old female inpatient with an intracranial hemorrhage, presenting for [facility]. Technique: Axial CT images were acquired from the foramen magnum through the skull vertex, without i ntravenous contrast. Soft tissue, subdural, and bone windows were reviewed on the computer workstati on. Images were reformatted at 5.00 and 1.25 mm increments, and are reformatted in sagittal and prakash nal planes. DFOV is 24.4 cm. Dose reduction techniques were utilized. Comparison Study: CT and MR imaging from March 10, 2016. Findings: As on the preceding studies, there is a persistent superior left frontal convexity extra-ax ial hemorrhage which currently measures 2.3 x 3.7 x 1.5 cm, and previously measured 2.5 x 4.0 x 1.6 c m. There is a small amount of subdural blood along the anterior left interhemispheric falx (currently measuring 1.8 mm, and previously measuring 3.1 mm in diameter), and there is also some associated garnica barachnoid hemorrhage involving the superior left frontal convexity. There is a tiny focus of left fr ontal subdural hemorrhage seen on series 3, images 53 and 6. There are no new mass lesions identified , and there is no evidence of interim further hemorrhage, or an acute infarct. The ventricles and garnica barachnoid spaces are normal in size for this age group. There is no new subfalcine shift. The bone windows reveal no sign of a fracture. The visualized paranasal sinuses and mastoid air cells are andrea e of fluid. Impression: Compared to previous studies yesterday, there has been a minimal interval decrease in the volume of left-sided intracranial hemorrhage, with no new hemorrhage or mass effect observed.
--- NOTE | 2016-03-11 13:50 | SOAPPROG ---
SOAP Progress Note Assessment/Plan: Assessment: 1. Transient thrombocytopenia: platelets up to 102K today. No evidence of DIC. 2. Subdural hematoma: per neurosurg obs Plan: 1). [facility] [place] 03/11/16 13:46 Subjective: Agustina is a pleasant 65 yo F with a subdural hematoma from a fall. She was noted to have dec platelets of 50K. She did not have anemia or changes in WBC to suggest leukemia or myelophthisis. She is doing better today. Objective: Vital Signs Temp Pulse Resp BP Pulse Ox 37.1 C 82 17 118/75 90 L 03/11/16 08:49 03/11/16 12:00 03/11/16 12:00 03/11/16 12:00 03/11/16 12:00 Laboratory Results 03/11/16 05:30 03/11/16 05:30 03/10/16 03/11/16 03/12/16 05:59 05:59 05:59 Intake Total 3519 199 Output Total 1600 Balance 1919 199 PT 13.0 SEC (12.0-15.0) 03/10/16 14:00 INR 0.99 (0.83-1.16) 03/10/16 14:00 ICD10 Worksheet Patient Problems: Problems Problem Status Diagnosed Intracranial hemorrhage Acute Seizures Acute
--- NOTE | 2016-03-11 14:53 | NEUROPROG ---
Assessment: #1 Traumatic intracranial hemorrhage #2 acute repetitive seizures secondary to 1. patient has remained stable overnight without recurrent seizures. She is doing well neurologically. Neurosurgery has recommended observation for her intracranial hemorrhage. she will likely discharge from the hospital soon. Recommendations: - Keppra 750 mg twice daily to be taken indefinitely until outpatient neurology follow up with [facility] . we discussed potential risks, benefits and alternatives of Keppra including moodiness, anger, depression and suicidal ideation. - [address] restrictions and seizure precautions - further surveillance imaging and management of intracranial hemorrhage per Neurosurgery - Appreciate Hematology/ Oncology input regarding low platelets. She will follow up further with this as an outpatient with her physicians at [facility]. - no further recommendations, we will sign off and follow-up p.r.n.. Subjective: No seizures overnight Objective: Vital Signs Temp Pulse Resp BP Pulse Ox 37.1 C 82 17 118/75 90 L 03/11/16 08:49 03/11/16 12:00 03/11/16 12:00 03/11/16 12:00 03/11/16 12:00 Laboratory Results 03/11/16 05:30 03/11/16 05:30 03/10/16 03/11/16 03/12/16 05:59 05:59 05:59 Intake Total 3519 199 Output Total 1600 Balance 1919 199 PT 13.0 SEC (12.0-15.0) 03/10/16 14:00 INR 0.99 (0.83-1.16) 03/10/16 14:00 awake and alert. No aphasia 35 minutes total fbcy-[id number] time; over 50% in counseling regarding the patient's traumatic intracranial hemorrhage and acute seizures, treatment and prognosis Allergies/Adverse Reactions: No Known Allergies Allergy (Unverified 03/10/16 08:17)
[2016-03-12 04:54] LABS: HEMATOCRIT 34.8 % (38.0-47.0); HEMOGLOBIN 12.4 g/dL (12.6-16.3); MEAN CELL HEMOGLOBIN CONCENTR. 35.6 g/dL (32.4-36.7); MEAN CELL VOLUME 89.7 fL (81.5-99.8); RED BLOOD CELL COUNT 3.88 10^6/uL (4.18-5.33); RED CELL DISTRIBUTION WIDTH 12.2 % (11.5-15.2)
[2016-03-12 05:13] LABS: ANION GAP 8 mEq/L (8-16); CALCIUM 8.9 mg/dL (8.5-10.4); CARBON DIOXIDE 26 mEq/l (22-31); CHLORIDE 110 mEq/L (97-110); CREATININE 0.7 mg/dL (0.6-1.0); GLOMERULAR FILTRATION RATE > 60; GLUCOSE 91 mg/dL (70-100); POTASSIUM 3.9 mEq/L (3.5-5.2); SODIUM 144 mEq/L (134-144)
[2016-03-12] MEDS: FAMOTIDINE 20 MG TAB PO SCH ×2 (07:54→07:57)
[2016-03-12] MEDS: levETIRAcetam 500 MG TAB PO SCH (07:54)
[2016-03-12] MEDS: SENNOSIDES/DOCUSATE SODIUM TAB PO SCH ×2 (07:55→07:56)
[2016-03-12] MEDS: ACETAMINOPHEN 325 MG TAB PO PRN (08:04)
[2016-03-12 08:31] VITALS: BP 128/80; PULSE 83; RESP 20; TEMP 98.2; O2SAT 93
--- NOTE | 2016-03-12 10:10 | NEUSURGPN ---
Assessment/Plan: 65 y F with left frontal SDH and seizures - doing well overall - defer AEDs to Neurology - appreciate their input, will d/c on 750mg bid and have her follow up with [facility] - Follow up with [facility] - likely dc home today if continues to do well - goal SBP < 150 - appreciate Medicine input into her other issues - Discussed with Dr. Klein, if she develops any new or worsening symptoms please notify NS Subjective: Denies any seizure activity since Saturday. Denies any headaches, nausea, vomiting Objective: NAD CN II-XII grossly intact. A&Ox3 MAEx4 - Physician Discussed Patient with : [facility] Physical Exam - Vitals, I&O, Labs I and O 03/11/16 03/12/16 03/13/16 05:59 05:59 05:59 Intake Total 3519 899 Output Total 1600 Balance 1919 899 Weight 54.683 kg Intake: Oral (ml) 800 700 IV Infused (ml) 2319 199 NS W/ 20 KCl/L 1,000 ml @ 1319 199 100 mls/hr IV CONT IBAN Rx#:[id number] Platelets (ml) 400 Output: Urine (ml) 1600 Catheter 950 Toilet 650 Other: Intake Quantity Yes Sufficient Number of Voids Toilet 2 1 Vital Signs Temp Pulse Resp BP Pulse Ox 36.8 C 83 20 128/80 H 93 03/12/16 08:00 03/12/16 08:00 03/12/16 08:00 03/12/16 08:00 03/12/16 08:00 Laboratory Results 03/12/16 04:14 03/12/16 04:14 ICD10 Worksheet Patient Problems: Problems Problem Status Diagnosed Intracranial hemorrhage Acute Seizures Acute
== END 2016-03-12 11:00 | disposition home or self-care (01) | DRG 100 ==
LOC: F2N 11:10 → F3N 03-11 08:45
PROVIDERS: ADMIT Neurological Surgery; ATTEND Neurological Surgery
PROC: 30233R1 Transfusion of Nonautologous Platelets into Peripheral Vein, Percutaneous Approach (ICD-10-PCS; principal; 2016-03-10)
PROC: 0BH17EZ Insertion of Endotracheal Airway into Trachea, Via Natural or Artificial Opening (ICD-10-PCS; 2016-03-10)
DX: R56.1 Post traumatic seizures (principal); S06.6X0A Traumatic subarachnoid hemorrhage without loss of consciousness, initial encounter; S06.5X0A Traumatic subdural hemorrhage without loss of consciousness, initial encounter; E87.2 Acidosis; D69.59 Other secondary thrombocytopenia; W00.0XXA Fall on same level due to ice and snow, initial encounter; Y93.21 Activity, ice skating; Z80.3 Family history of malignant neoplasm of breast
CPT/HCPCS: 82947-QW; 92523-GN; 92610-GN; 97161-GP; A9585; J0330; J1953; J2704; P9035

== ENCOUNTER 2016-04-02 20:54 | Inpatient (IN) | payer OTHER ==
--- NOTE | 2016-04-02 22:04 | EDPHY ---
H & P Stated Complaint: confusion S/P TBI 2016 HPI/ROS: HPI CHIEF COMPLAINT: Increasing confusion, altered mental status, trouble with speech HISTORY OF PRESENT ILLNESS: This patient very pleasant 65-year-old female she presents emergency room by private vehicle with her . She presents emergency room for the past 3-4 days she has had increasing confusion, trouble with her speech with expressive aphasia, and slow movements her reports. Of note she was seen here in the hospital after she fell ice skating sustaining a head injury with intraparenchymal contusions. She also had a seizure. Other than that she does not take any daily medications he has no medical history no history of cardiac or stroke. Her tells me the past 3 days she has had increasing confusion word- finding difficulty, expressive aphasia and slow gross movements. no new trauma. Past Medical History: Concussion, closed-head injury, SDH, seizure Past Surgical History: No surgical history Social History: Lives locally denies drugs alcohol tobacco products Family History: Noncontributory ROS REVIEW OF SYSTEMS: A comprehensive 10 point review of systems is otherwise negative aside from elements mentioned in the history of present illness. Exam Constitutional triage nursing summary reviewed, vital signs reviewed, awake/ alert. Eyes normal conjunctivae and sclera, EOMI, PERRLA. HENT head/neck: normal inspection, atraumatic, moist mucus membranes, no epistaxis, neck supple/ no meningismus, no raccoon eyes. Respiratory clear to auscultation bilaterally, normal breath sounds, no respiratory distress, no wheezing. Cardiovascular rate normal, regular rhythm, no murmur, no edema, distal pulses normal. Gastrointestinal soft, non-tender, no rebound, no guarding, normal bowel sounds, no distension, no pulsatile mass. Genitourinary no CVA tenderness. Musculoskeletal no midline vertebral tenderness, full range of motion, no calf swelling, no tenderness of extremities, no meningismus, good pulses, neurovascularly intact. Skin pink, warm, & dry, no rash, skin atraumatic. Neurologic At time slow to respond, awake, alert and oriented x 3, AAOx3, moves all 4 extremities equally, motor intact, sensory intact, CN II-XII intact , normal cerebellar, normal vision, Psychiatric normal mood/affect. Heme/Lymph/Immune no lymphadenopathy. Differential Diagnosis:includes but is not limited to in a particular order infection, CVA, TIA, bleed, electrolyte abnormality, urinary tract infection, cardiac arrhythmia Medical Decision Making: this patient be placed on fall monitor, an IV will be established obtain blood work, patient had a CT scan of the head, chest x-ray, EKG, electrolytes, troponin. Re-evaluation: CT scan of the head without IV contrast The results of the study are this shows a subdural hemorrhage, left-sided appears to be subacute in nature 12 mm in thickness, 8 mm left to right midline shift. The study was read by Dr. Fontanez I viewed the images myself on the PACS system. 2303: Spoke with Dr. Duncan Knight, Consult NeuroSx, Reviewed scan, recommends platelets, transfusion, and admission to the ICU will see and evaluate. Will admit to him. Critical Care: Total Critical Care Time Spent Managing this Patient: 60 minutes Minutes. This time was spent Exclusively with this patient. This Care was exclusive of procedures. The Organ System/life at risk was neurological This Patient was in Critical Condition because subdural hemorrhage with low platelets 2305: Updated family, they understand patient be admitted to the ICU for subdural hemorrhage. 1 g of Keppra ordered, platelets ordered 6 pack. Patient is completely hemodynamically stable this time, neurological exam other than slow with speech is unremarkable. Hemodynamically stable and safe for transfer to ICU. Source: Patient - Personal History Current Tetanus/Diphtheria Vaccine: Yes Current Tetanus Diphtheria and Acellular Pertussis (TDAP): Yes - Medical/Surgical History Hx Asthma: No Hx Chronic Respiratory Disease: No Hx Diabetes: No Hx Cardiac Disease: No Hx Renal Disease: No Hx Cirrhosis: No Hx Alcoholism: No Hx HIV/AIDS: No Hx Splenectomy or Spleen Trauma: No Other PMH: psoriasis, TBI 2016, - Social History Smoking Status: Never smoked Constitutional: Initial Vital Signs Temperature (C) 36.4 C 04/02/16 21:03 Heart Rate 63 04/02/16 21:03 Respiratory Rate 16 04/02/16 21:03 Blood Pressure 149/80 H 04/02/16 21:03 O2 Sat (%) 97 04/02/16 21:03 O2 Delivery Mode Room Air Allergies/Adverse Reactions: No Known Allergies Allergy (Unverified 04/02/16 21:02) Home Medications: Medication Instructions Recorded Cholecalciferol Vit D3 [Vitamin D3 1,000 units PO DAILY 03/10/16 (*)] Ferrous Sulfate [Ferrous Sulf 325 325 mg PO DAILY 03/10/16 MG (*)] Multivitamins [Multivitamin (*)] 1 each PO DAILY 03/10/16 Acetaminophen [Tylenol 325mg (*)] 650 mg PO Q4HRS PRN #0 tab 03/12/16 levETIRAcetam [Keppra 500 mg (*)] 750 mg PO BID #0 tab 03/12/16 Medical Decision Making - Data Points Laboratory Results: Laboratory Results 04/02/16 22:25 04/02/16 22:25 04/02/16 04/02/16 22:25 22:20 WBC 5.51 10^3/uL (3.80-9.50) RBC 4.48 10^6/uL (4.18-5.33) Hgb 14.5 g/dL (12.6-16.3) Hct 40.4 % (38.0-47.0) MCV 90.2 fL (81.5-99.8) MCH 32.4 pg (27.9-34.1) MCHC 35.9 g/dL (32.4-36.7) RDW 12.6 % (11.5-15.2) Plt Count 67 L 10^3/uL (150-400) MPV 10.5 fL (8.7-11.7) Neut % (Auto) 74.8 H % (39.3-74.2) Lymph % (Auto) 17.2 % (15.0-45.0) [place] % (Auto) 5.4 % (4.5-13.0) Eos % (Auto) 1.8 % (0.6-7.6) Baso % (Auto) 0.4 % (0.3-1.7) Nucleat RBC Rel Count 0.0 % (0.0-0.2) Absolute Neuts (auto) 4.12 10^3/uL (1.70-6.50) Absolute Lymphs (auto) 0.95 L 10^3/uL (1.00-3.00) Absolute Monos (auto) 0.30 10^3/uL (0.30-0.80) Absolute Eos (auto) 0.10 10^3/uL (0.03-0.40) Absolute Basos (auto) 0.02 10^3/uL (0.02-0.10) Absolute Nucleated RBC 0.00 10^3/uL (0-0.01) Immature Gran % 0.4 % (0.0-1.1) Immature Gran # 0.02 10^3/uL (0.00-0.10) PT 12.7 SEC (12.0-15.0) INR 0.96 (0.83-1.16) VBG Lactic Acid 0.7 mmol/L (0.7-2.1) Sodium 134 mEq/L (134-144) Potassium 3.8 mEq/L (3.5-5.2) Chloride 100 mEq/L (97-110) Carbon Dioxide 25 mEq/l (22-31) Anion Gap 9 mEq/L (8-16) BUN 16 mg/dL (7-23) Creatinine 0.9 mg/dL (0.6-1.0) Estimated GFR > 60 Glucose 110 H mg/dL (70-100) Calcium 9.2 mg/dL (8.5-10.4) Magnesium 1.7 mg/dL (1.6-2.3) Total Bilirubin 0.6 mg/dL (0.1-1.4) Conjugated Bilirubin 0.1 mg/dL (0.0-0.5) Unconjugated Bilirubin 0.5 mg/dL (0.0-1.1) AST 27 IU/L (14-46) ALT 34 IU/L (9-52) Alkaline Phosphatase 94 IU/L (38-126) Troponin I < 0.012 ng/mL (0-0.034) NT-Pro-B Natriuret Pep 64 pg/mL (0-125) Total Protein 6.3 g/dL (6.3-8.2) Albumin 3.9 g/dL (3.5-5.0) Lipase 59.0 IU/L (23-300) Medications Given: Discontinued Medications Sodium Chloride (Ns) 1,000 mls @ 0 mls/hr IV ONCE ONE PRN Reason: Wide Open Stop: 04/02/16 22:13 Last Admin: 04/02/16 22:27 Dose: 1,000 mls Levetiracetam 1,000 mg/ Sodium (Chloride) 110 mls @ 440 mls/hr IV EDNOW ONE Stop: 04/02/16 23:13 Last Admin: 04/02/16 23:12 Dose: 110 mls Departure - Departure Disposition: [facility] Acute Clinical Impression: SDH (subdural hematoma) Condition: Fair
[2016-04-02] MEDS ORDERED: NS 1,000 ML IV ONE (22:12)
[2016-04-02 22:47] LABS: % IMMATURE GRANULYOCYTES 0.4 % (0.0-1.1); ABSOLUTE IMMATURE GRANULOCYTES 0.02 10^3/uL (0.00-0.10); ADD DIFF? NO; ADD MORPH? NO; ADD SCAN? NO; ATYPICAL LYMPHOCYTE FLAG 0 (0-99); FRAGMENT RBC FLAG 0 (0-99); HEMATOCRIT 40.4 % (38.0-47.0); HEMOGLOBIN 14.5 g/dL (12.6-16.3); LEFT SHIFT FLG 0 (0-99); LIPEMIA HEMOLYSIS FLAG 90 (0-99); MEAN CELL HEMOGLOBIN 32.4 pg (27.9-34.1); MEAN CELL HEMOGLOBIN CONCENTR. 35.9 g/dL (32.4-36.7); MEAN CELL VOLUME 90.2 fL (81.5-99.8); MEAN PLATELET VOLUME 10.5 fL (8.7-11.7); PLATELET CLUMPS FLAG 0 (0-99); PLATELET COUNT 67 10^3/uL (150-400); RED BLOOD CELL COUNT 4.48 10^6/uL (4.18-5.33); RED CELL DISTRIBUTION WIDTH 12.6 % (11.5-15.2)
[2016-04-02 22:50] LABS: INR 0.96 (0.83-1.16); PROTIME(PATIENT) 12.7 SEC (12.0-15.0)
[2016-04-02] MEDS ORDERED: levETIRAcetam 1,000 MG in NS 100 ML IV ONE (22:59)
[2016-04-02 23:02] LABS: ALANINE AMINOTRANSFERASE 34 IU/L (9-52); ALBUMIN 3.9 g/dL (3.5-5.0); ALKALINE PHOSPHATASE 94 IU/L (38-126); ANION GAP 9 mEq/L (8-16); ASPARTATE AMINOTRANSFERASE 27 IU/L (14-46); BILIRUBIN,TOTAL 0.6 mg/dL (0.1-1.4); BILIRUBIN-CONJUGATED 0.1 mg/dL (0.0-0.5); BILIRUBIN-UNCONJUGATED 0.5 mg/dL (0.0-1.1); CALCIUM 9.2 mg/dL (8.5-10.4); CARBON DIOXIDE 25 mEq/l (22-31); CHLORIDE 100 mEq/L (97-110); CREATININE 0.9 mg/dL (0.6-1.0); GLOMERULAR FILTRATION RATE > 60; GLUCOSE 110 mg/dL (70-100); MAGNESIUM 1.7 mg/dL (1.6-2.3); POTASSIUM 3.8 mEq/L (3.5-5.2); SODIUM 134 mEq/L (134-144); TOTAL PROTEIN 6.3 g/dL (6.3-8.2)
--- NOTE | 2016-04-02 23:09 | CT ---
CT Head, Without Contrast HISTORY: Altered mental status. Recent intracranial hemorrhage. Technique: Standard noncontrast head CT protocol utilizing axial images acquired through the [facility] um. Images were reconstructed down to 1.25-mm slice thickness as well. Radiation dose technique was utilized. COMPARISON: March 11, 2016. FINDINGS: The intraparenchymal hemorrhage in the left frontal lobe has resolved. There is now a sub dural hematoma in the left frontoparietal region, measuring 12 mm in thickness. There is mixed atten uation suggesting it is subacute. There is midline shift, subfalcine, of left to right of 8 mm. The re is compression of the left lateral ventricle. No other findings for an intracranial mass or acute infarct. No evidence for a skull fracture. IMPRESSION: Resolution of the left frontal intraparenchymal hemorrhage. However, there is now devel opment of a left frontoparietal subdural hematoma, with mass effect and midline shift, subfalcine, of left to right, as above. Results discussed with Dr. Mitul Blacwkood.
[2016-04-02 23:13] LABS: TROPONIN I < 0.012 ng/mL (0-0.034)
--- NOTE | 2016-04-02 23:15 | DX ---
Portable chest, single view. HISTORY: Altered mental status. COMPARISON: February 2016. FINDINGS: Heart size is within normal limits. Pulmonary vascularity appears normal. Question minimal peribronchial wall thickening. Mild scarring or atelectasis or less likely infiltrate left lower lobe , retrocardiac. No evidence for pleural effusion or pneumothorax. IMPRESSION: Questionable minimal underlying bronchitis. Probable mild atelectasis or scarring left malissa ng base.
[2016-04-02] MEDS ORDERED: POLYETHYLENE GLYCOL 3350 17 GM PKT PO PRN (23:21)
[2016-04-02] MEDS ORDERED: MAGNESIUM HYDROXIDE 30 ML UDCUP PO PRN (23:21)
[2016-04-02] MEDS ORDERED: LACTULOSE 20 GM/30 ML UDCUP PO PRN (23:21)
[2016-04-02] MEDS ORDERED: BISACODYL 10 MG SUPP PR PRN (23:21)
[2016-04-02] MEDS ORDERED: NS W/ 20 KCl/L 1,000 ML IV SCH (23:30)
[2016-04-03 02:48] LABS: COLOR PALE YELLOW; LEUKOCYTE ESTERASE,URINE 1+ (NEGATIVE); NITRITE,URINE NEGATIVE (NEGATIVE)
[2016-04-03 02:53] LABS: RBC,URINE 15-25 /hpf (0-3)
[2016-04-03 05:32] LABS: % IMMATURE GRANULYOCYTES 0.6 % (0.0-1.1); ABSOLUTE IMMATURE GRANULOCYTES 0.03 10^3/uL (0.00-0.10); ADD DIFF? NO; ADD MORPH? NO; ADD SCAN? NO; ATYPICAL LYMPHOCYTE FLAG 10 (0-99); FRAGMENT RBC FLAG 0 (0-99); HEMATOCRIT 37.9 % (38.0-47.0); HEMOGLOBIN 13.5 g/dL (12.6-16.3); LEFT SHIFT FLG 0 (0-99); LIPEMIA HEMOLYSIS FLAG 90 (0-99); MEAN CELL HEMOGLOBIN 32.5 pg (27.9-34.1); MEAN CELL HEMOGLOBIN CONCENTR. 35.6 g/dL (32.4-36.7); MEAN CELL VOLUME 91.1 fL (81.5-99.8); MEAN PLATELET VOLUME 10.1 fL (8.7-11.7); PLATELET CLUMPS FLAG 10 (0-99); PLATELET COUNT 96 10^3/uL (150-400); RED BLOOD CELL COUNT 4.16 10^6/uL (4.18-5.33); RED CELL DISTRIBUTION WIDTH 12.8 % (11.5-15.2)
[2016-04-03] MEDS: SENNOSIDES/DOCUSATE SODIUM TAB PO SCH ×2 (09:00→21:36)
--- NOTE | 2016-04-03 10:08 | GHP ---
[f rep st] HISTORY AND PHYSICAL DATE OF ADMISSION: 04/02/2016 DATE OF EVALUATION: 04/03/2016 CHIEF COMPLAINT: Altered mental status. HISTORY OF PRESENT ILLNESS: The patient is a very pleasant, 65-year-old female who was admitted thro [facility] the emergency department to the ICU late last night. The patient states that in late February katarina paul slipped and fell on the ice while ice skating without any loss of consciousness but did hit her hea d. She was seen at the hospital and evaluated with a CT scan of the head at that time, demonstrating a left frontal intraparenchymal hemorrhage. The patient was neurologically stable at that time and discharged home the following day. Over the past several days, the patient has not been feeling right, and her notes that she coughlin s been in sort of a "fog." Her also noticed that she was having some word-finding issues dur ing their conversations and that she was simply just not acting right. She was also seen to be shuff ling her feet. She reporting some mild headaches as well. Due to these neurologic changes, the max ent came to the hospital late last night after discussing these issues with her primary care doctor. CT scan of the head was performed demonstrating a left-sided subacute subdural hematoma measuring ap proximately 12 mm at its greatest thickness causing some [id number] midline shift. Currently, the patient is awake, alert, oriented x4, and appears neurologically quite stable. ALLERGIES: No known drug allergies. CURRENT MEDICATIONS: Vitamin D and other multivitamin supplement. PAST MEDICAL HISTORY: Low platelets and psoriasis. PAST SURGICAL HISTORY: Noncontributory. SOCIAL HISTORY: The patient is . She lives with her at home and is retired. She fernandez s not smoke. REVIEW OF SYSTEMS: Negative other than what is mentioned in the HPI. PHYSICAL EXAMINATION: GENERAL: Pleasant, healthy-appearing, 65-year-old female, in no apparent dist ress. HEAD, EYES, EARS, NOSE AND THROAT: Within normal limits. EXTREMITIES: Within normal limits. SKIN: Success, warm and dry. ABDOMEN: Soft, nontender, nondistended. NEUROLOGIC: Patient is awake , alert, and oriented x4. Cranial nerves 2-12 are intact to gross examination. Speech is fluent. T ongue is midline. Spinal accessory muscles are intact. There is no pronator drift and no facial owen op. The patient has equal and symmetric strength of the bilateral upper and lower extremities in all muscle groups. Her reflexes are 1/4 at bilateral biceps, brachioradialis, patellar tendons, with no clonus and no Carpenter's. DATA REVIEW: CT scan of the head without contrast dated 04/03/16 was compared to a prior study dated March 11, 2016. There has been interval resolution of the left frontal intraparenchymal hemorrhage . There is now a left frontoparietal subdural hematoma with mass effect and midline shift left to ri ght. The subdural measures approximately 12 mm in thickness with mixed attenuation suggesting subacu te characteristics. Midline shift measures approximately 8 mm with compression of the left lateral v entricle. There is no evidence of skull fracture. LAB RESULTS: White blood cell count 4.7, hemoglobin 13.5, hematocrit 37.9, platelets are 96,000. IN R 0.96. Chemistry: Sodium is 134, potassium 3.8, chloride 100, BUN 16, creatinine 0.9. UA has 1+ l eukocyte esterase, 3-5 white blood cells. Culture is pending. Tox screen is negative. IMPRESSION: This is a 65-year-old female who slipped and fell in late February and suffered a left f rontal intraparenchymal hemorrhage and was seen at that time in the hospital and evaluated and discha rged the following day neurologically intact. Over the past 3-4 days, the patient has had episodes o f word-finding difficulty, shuffling her feet, and mild headache and a general fogginess about her, a ccording to her and herself. A head CT upon admission demonstrates a left-sided 12 mm thick subacute subdural hematoma causing approximately 8 mm of [id number] midline shift. Currently, the patient is neurologically stable with a GCS of 15. The patient was seen and examined by Dr. Mccauley at approximately 9 a.m. this morning in the ICU. PLAN: All the above issues were discussed with Dr. Klein, Dr. Mccauley, the patient and her . At this time, the patient will be set up to undergo surgery tomorrow for a left-sided craniotomy for evacuation of subdural hematoma. If the patient should experience an acute neurologic decline, we w ould take her to the OR immediately most likely. She will undergo q.1 hour neuro checks. The patien t will undergo a Stealth CT of her head tomorrow morning, and we will recheck her platelets prior to surgery. The patient was explained the risks and benefits of surgery and completed consent forms toraul langston. /[id number]/MODL
--- NOTE | 2016-04-03 13:29 | GCON ---
[f rep st] CONSULTATION AEROSPACE PROJECT MANAGER CONSULTATION DATE OF CONSULTATION: 04/03/2016 REASON FOR ADMISSION: Intraparenchymal hemorrhage. This is an extremely pleasant 65-year-old, white female with a past medical history including low platelets and psoriasis. She was seen last month a fter a fall while figure skating. There was no loss of consciousness, but she did suffer a left fron janneth intraparenchymal hemorrhage. She was neurologically stable and was discharged home. For the las t several days, she said she was feeling abnormal with a "fog" and she was having some word-finding i ssues. She was brought to the emergency room. CT scan showed a left-sided subacute subdural hematom a and she was subsequently admitted to the intensive care unit. In discussion with the patient, she states that overall she feels quite well. There was no chest pain, pleuritic-type chest pain or agapito na equivalent. No cough or productive sputum. She denies any headaches. PAST MEDICAL HISTORY: Significant for low platelets, psoriasis and closed head injury. ALLERGIES: No known medications. SOCIAL HISTORY: Lifelong never smoker. No significant alcohol use. She is . 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 She has lived in [place] all her life. MEDICATIONS: Multivitamins and vitamin D. PHYSICAL EXAM: VITAL SIGNS: Blood pressure is 107/69, pulse is 63, respiration 19, temperature 36.7 , oxygen saturation 97% on room air. GENERAL: She is a well-developed, well-nourished, 65-year-old, white female, who is resting comfortably in no acute distress. HEENT: Eyes SATURNINO EOMI. Throat show s no erythema or tonsillar hypertrophy. NECK: Supple. There is no cervical adenopathy. HEART: Re gular rate and rhythm without murmurs, rubs, gallops. LUNGS: Clear to auscultation. No wheeze or r honchi. ABDOMEN: Soft, nontender. Bowel sounds are present in all 4 quadrants. EXTREMITIES: No c lubbing, cyanosis, or edema. LABORATORIES: White count 4.7, hemoglobin 13, hematocrit 37, platelet count 96. Sodium 134, potassi um 3.8, chloride 100, CO2 is 25, BUN 16, creatinine 0.9, glucose is 110. Urinalysis shows 3-5 WBCs 1 5-25 RBCs. Urine tox screen is negative. CT scan of the head shows resolution of left frontal intra parenchymal hemorrhage. There is a new left frontoparietal subdural hematoma with mass effect and mi dline shift left to right. IMPRESSION: 1. History of closed head injury. 2. New subdural hematoma with midline shift. RECOMMENDATIONS: 1. Adequate pain control. 2. PT and OT. 3. Out of bed to chair. 4. Agree with transfusion of platelets. 5. The patient will likely go to the operating room tomorrow for evacuation of subdural hematoma. /[id number]/MODL
[2016-04-03 16:58] LABS: HEMATOCRIT 39.3 % (38.0-47.0); HEMOGLOBIN 13.5 g/dL (12.6-16.3); MEAN CELL HEMOGLOBIN 31.3 pg (27.9-34.1); MEAN CELL HEMOGLOBIN CONCENTR. 34.4 g/dL (32.4-36.7); RED BLOOD CELL COUNT 4.32 10^6/uL (4.18-5.33); RED CELL DISTRIBUTION WIDTH 12.8 % (11.5-15.2)
--- NOTE | 2016-04-03 20:00 | GHP ---
[f rep st] HISTORY AND PHYSICAL DATE OF ADMISSION: 04/02/2016 REASON FOR CONSULTATION: Thrombocytopenia in the setting of a subdural hematoma. 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 The patient's history dates back to March 10, when she was ice skating and fell and hit her head. Following that, she had a seizure and was intuba lizeth and was found to have an intracerebral bleed in the left frontal lobe along with a subarachnoid h emorrhage and a small left frontal subdural hematoma. On admission, the patient's platelet count was 57,000. She was given platelets over the course of the next few days, and her platelet count respon ded in appropriate fashion, initially going from 50,000 to 82,000 following 1 transfusion, then up to 107,000 and 124,000 on March 12. She is followed at [place] and believes she had a CBC done the [facility] after that admission and thought her platelet count was around 70,000. She was scheduled to see the crawler crane operator at [facility] next week. Over the last several days, the patient has not been feeling her normal self, and her feels t hat she has been in a fog. She has been having some word-finding issues and was also noted to have a shuffling gait. She presented to the ER, and a head CT demonstrated resolution of the left frontal intraparenchymal hemorrhage; however, she now had a left frontoparietal subdural hematoma measuring 1 2 mm in thickness. There was midline shift, left to right, of 8 mm. There was some compression of t he left lateral ventricle. On admission, platelet count was 67,000. She was transfused [address] atelets with a platelet count this morning of 96,000 and again transfused another unit with a platele t count this afternoon of 147,000. The patient is scheduled for surgery tomorrow for evacuation of t he hematoma. The patient has no known history of thrombocytopenia, but she is not certain if she has had CBCs done previously. There is no family history of thrombocytopenia. She has been feeling in her usual stat e of health. She does have psoriasis, but there are no other autoimmune disorders in the family. Th e only prescription medicine that she is on is Keppra, which was prescribed at the time of the seizur e in February. PAST MEDICAL HISTORY: Unremarkable other than HPI, other than psoriasis. FAMILY HISTORY: Father in his 70s of an [place]. Mother of breast cancer in her 70s. She has 1 sibling. There is no family history of any bleeding disorder, thrombocytopenia. SOCIAL HISTORY: She has been for 33 years and has 2 healthy children. 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 REVIEW OF SYSTEMS: Ten-point review of systems is negative other than HPI. PHYSICAL EXAMINATION: GENERAL: She is awake, alert female with somewhat slow speech who appears com fortable. VITAL SIGNS: Blood pressure 125/75, heart rate 74, O2 sat 95% on 2 L. HEENT: Pupils equ al. Sclerae anicteric. Oropharynx clear. LUNGS: Clear. HEART: Regular rate. ABDOMEN: Soft, no ntender. EXTREMITIES: No edema. LABORATORY DATA: White blood cell count on admission of 5.5, hematocrit 40.4, platelet count of 67, mean platelet volume of 10.5. PT, INR are normal. Metabolic panel is unremarkable. Urinalysis show s 2+ blood with 1+ leukocyte esterase, 15-25 RBCs, and 3-5 WBCs. It has been cultured. IMPRESSION: This is a 65-year-old previously healthy female who developed an intraparenchymal cerebr al hemorrhage in February after falling and hitting her head. When she presented, her platelet count was 60,000. She responded to platelet transfusions, albeit temporarily. She now presents with a ne w symptomatic subdural hematoma with platelet counts back down to the 60,000 to 70,000 range. The etiology of the thrombocytopenia is not clear. The most common cause would be idiopathic thrombo cytopenic purpura, given the normal white blood cell and normal hemoglobin and hematocrit. Often, th e mean platelet volume is increased with idiopathic thrombocytopenic purpura, and, of note, her MPV i s normal. Also, her platelet count responds appropriately to platelet transfusions, which is not alw ays the case with idiopathic thrombocytopenic purpura; however, it is not clear how long-lived the re sponse will be. Her was present with her at our meeting today. We discussed that a bone marrow disorder is a consideration but seems unlikely, given the normal white blood cell count and hematocrit. Medicatio ns are always a potential cause and she is on Keppra, but Keppra was started after she initially pres ented in February and her platelets were already low at that time. This could also represent some ty pe of a congenital thrombocytopenia, but I suspect she has had a CBC at some point in the past, and s he was never told platelets were low before. For the immediate future, I think management of the thrombocytopenia in the setting of the subdural b leed is best managed with platelet transfusions. I think it would be reasonable to treat her empiric ally for idiopathic thrombocytopenic purpura. We often start with steroids, but I would like to disc uss this with Neurosurgery. Another option might be IV immunoglobulin. It will be important for her to have close hematology followup with her [facility] crawler crane operator at the time of discharge. We will continue to follow along with you. /[id number]/MODL
[2016-04-04 05:17] LABS: HEMATOCRIT 40.4 % (38.0-47.0); HEMOGLOBIN 14.3 g/dL (12.6-16.3); MEAN CELL HEMOGLOBIN 31.6 pg (27.9-34.1); MEAN CELL HEMOGLOBIN CONCENTR. 35.4 g/dL (32.4-36.7); MEAN CELL VOLUME 89.4 fL (81.5-99.8); RED BLOOD CELL COUNT 4.52 10^6/uL (4.18-5.33); RED CELL DISTRIBUTION WIDTH 12.5 % (11.5-15.2)
[2016-04-04 05:19] LABS: PROTIME(PATIENT) 13.1 SEC (12.0-15.0)
[2016-04-04 05:20] LABS: APTT 24.4 SEC (23.0-38.0)
[2016-04-04 05:32] LABS: ANION GAP 7 mEq/L (8-16); CALCIUM 9.3 mg/dL (8.5-10.4); CARBON DIOXIDE 25 mEq/l (22-31); CHLORIDE 108 mEq/L (97-110); CREATININE 0.8 mg/dL (0.6-1.0); GLOMERULAR FILTRATION RATE > 60; GLUCOSE 97 mg/dL (70-100); POTASSIUM 4.2 mEq/L (3.5-5.2); SODIUM 140 mEq/L (134-144)
[2016-04-04] MEDS: SENNOSIDES/DOCUSATE SODIUM TAB PO SCH ×2 (07:47→21:49)
--- NOTE | 2016-04-04 07:58 | SOAPPROG ---
SOAP Progress Note Assessment/Plan: Assessment: 65 yo F with left sided subdural hygroma Plan: stable plan for OR today for cranitomy for evacuation of left sided subdural hygroma consents signed, patient marked npo please call with neuro changes pt was seen by Dr Klein this am 04/04/16 07:56 Subjective: patient has mild headache, no N/V. No weakness. Objective: Vital Signs Temp Pulse Resp BP Pulse Ox 36.5 C 78 18 124/69 H 95 04/03/16 19:00 04/04/16 07:00 04/04/16 07:00 04/04/16 07:00 04/04/16 07:00 Laboratory Results 04/04/16 04:55 04/04/16 04:55 04/03/16 04/04/16 04/05/16 05:59 05:59 05:59 Intake Total 1000 2066 Output Total 600 Balance 400 2066 PT 13.1 SEC (12.0-15.0) 04/04/16 04:55 INR 1.00 (0.83-1.16) 04/04/16 04:55 AAOX4, +FC PERRL, EOMI, no facial droop 5/5 + light touch ICD10 Worksheet Patient Problems: Problems Problem Status Diagnosed SDH (subdural hematoma) Acute Intracranial hemorrhage Acute Seizures Acute
--- NOTE | 2016-04-04 09:18 | CT ---
Noncontrast Head CT 0 855 hours History: Altered mental status with development of left frontal parietal subdural hematoma with asso ciated mass effect and midline shift. Technique: Standard noncontrast head CT protocol utilizing axial images was acquired through the anat varium. Data was transmitted for subsequent Stealth neurosurgical procedure. Images were reconstructe d in multiple planes as well. Dose reduction techniques were utilized. Comparison the prior CT study of April 02, 2016 Findings: Left frontoparietal subdural hematoma collection is once again identified with compression upon the underlying cerebral parenchyma. This measures about 11 mm in thickness. There is once again left to right shift of about 7 mm. There is some asymmetric dilatation of the temporal horn of the ri ght lateral ventricle similar to the prior study related to the zguc-rg-[id number] shift. The cerebral parenchyma has a normal attenuation. There are no masses, intraparenchymal hemorrhage, o r evidence of recent cerebral infarction. The bones are unremarkable. The paranasal sinuses are lester r. Impression: 1. Moderate left subdural hematoma collection with left to right shift and some enlargement of the te mporal horn right lateral ventricle. 2. Data was transmitted for subsequent neurosurgical procedure.
[2016-04-04] MEDS: levETIRAcetam 750 MG in NS 100 ML IV SCH (11:31)
[2016-04-04] MEDS ORDERED: BUPIVACAINE/EPI 0.25% 30 ML SDV ONE (13:15)
[2016-04-04] MEDS ORDERED: BACITRACIN 50,000 UNITS/10 ML SYR IRR ONE (13:15)
[2016-04-04] MEDS ORDERED: PROPOFOL/EMULSION 500 MG/50 ML BOTTLE IV ONE (13:28)
[2016-04-04] MEDS ORDERED: fentaNYL 250 MCG/5 ML INJ ONE (13:29)
[2016-04-04] MEDS ORDERED: THROMBIN (RECOMBINANT) 5,000 UNIT VIAL TP ONE (13:35)
[2016-04-04] MEDS ORDERED: ROCURONIUM 50 MG/5 ML VIAL ONE (13:45)
[2016-04-04] MEDS ORDERED: LIDOCAINE 2% 5 ML SDV ONE (13:45)
[2016-04-04] MEDS ORDERED: GLYCOPYRROLATE 0.2 MG/1 ML VIAL ONE (13:45)
[2016-04-04] MEDS ORDERED: NEOSTIGMINE METHYLSULFATE 5 MG/5 ML SYR ONE (13:45)
--- NOTE | 2016-04-04 13:47 | PDINTPN ---
Presentation Designer Progress Note Assessment/Plan: Assessment/plan: * SDH- s/p recent fall with SAH, now progressed to symptomatic SDH. planning evacuation today via craniotomy. Clinically stable * Thrombocytopenia- unclear etiology, but does respond well to transfusion. DDx includes HIV, Hep C, SLE, CLL. Meds don't seem to fit, nor does DIC/consumptive coagulopathy. LFTs have been normal and no known HIV risk factors. Will check MAR panel. She may eventually need bone marrow aspirate. Agree with simple transfusion for now. Not sure steroids/IVIG (to treat possible ITP) needed since her bleeding was traumatic. 04/04/16 13:47 Objective: Vital Signs Temp Pulse Resp BP Pulse Ox 36.5 C 67 22 H 110/68 99 04/03/16 19:00 04/04/16 13:00 04/04/16 13:00 04/04/16 13:00 04/04/16 13:00 Laboratory Results 04/04/16 04:55 04/04/16 04:55 04/03/16 04/04/16 04/05/16 05:59 05:59 05:59 Intake Total 1000 2066 Output Total 600 Balance 400 2066 PT 13.1 SEC (12.0-15.0) 04/04/16 04:55 INR 1.00 (0.83-1.16) 04/04/16 04:55 Physical Exam - Physical Exam General Appearance: alert, no apparent distress EENT: PERRL/EOMI, No scleral icterus (R), No scleral icterus (L), No hearing deficit, No anisocoria Neck: non-tender, full range of motion, supple Respiratory: lungs clear, normal breath sounds, No respiratory distress, No crackles, No rales, No wheezing Cardiac/Chest: normal peripheral pulses, regular rate, rhythm, No edema, No bradycardia, No systolic murmur Abdomen: normal bowel sounds, non-tender, soft, No distended, No guarding Skin: normal color, warm/dry, other (no petechiae or purpura), No rash Lymphatic: No no adenopathy Extremities: No pedal edema, No calf tenderness Neuro/Psych: alert, normal mood/affect, oriented x 3, No EOM palsy, No facial droop, No motor weakness ICD10 Worksheet Patient Problems: Problems Problem Status Diagnosed SDH (subdural hematoma) Acute Intracranial hemorrhage Acute Seizures Acute
[2016-04-04] MEDS ORDERED: ALBUMIN 5% 250 ML BOTTLE IV ONE (14:01)
[2016-04-04] MEDS ORDERED: CEFUROXIME 1,500 MG in NS 50 ML IV ONE (14:30)
[2016-04-04] MEDS ORDERED: PROPOFOL 200 MG/20 ML VIAL ONE (15:05)
[2016-04-04] MEDS ORDERED: SUGAMMADEX SODIUM 200 MG/2 ML VIAL IVP ONE (15:06)
[2016-04-04] MEDS ORDERED: OXYCODONE/APAP 5/325 TAB PO PRN (15:23)
[2016-04-04] MEDS ORDERED: ONDANSETRON 4 MG/2 ML VIAL IVP PRN (15:23)
[2016-04-04] MEDS ORDERED: PROMETHAZINE HCL 25 MG TAB PO PRN (15:23)
[2016-04-04] MEDS ORDERED: HYDROmorphONE/DILAUDID 1 MG/ML SYR IVP PRN (15:23)
[2016-04-04] MEDS ORDERED: PROMETHAZINE HCL 25 MG/ML INJ IVP PRN (15:23)
[2016-04-04] MEDS ORDERED: MAG HYDROX/AL HYDROX/SIMETH 30 ML UDCUP PO PRN (15:23)
[2016-04-04] MEDS ORDERED: LORazepam 1 MG TAB PO PRN (15:23)
[2016-04-04] MEDS ORDERED: DIAZEPAM 5 MG TAB PO PRN (15:23)
[2016-04-04] MEDS ORDERED: NS W/ 20 KCl/L 1,000 ML IV SCH (15:30)
--- NOTE | 2016-04-04 16:54 | SOAPPROG ---
SOAP Progress Note Assessment/Plan: Post Op Visit: S: Doing well. Mild GONSALEZ. No neck/chest/abd or gu complaints O: AFVSS/PERRLA/EOMI AAO x 3 no droop CN 2-12 grossly intact 5/5 BUE/BLE = CDI A/P: 65 yo female that is s/p craniotomy for SDH evacuation -orders in place -call with any questions or concerns -take medications as directed - at bedside-updated 04/04/16 16:52 Objective: Vital Signs Temp Pulse Resp BP Pulse Ox 36.5 C 74 92 H 110/65 94 04/03/16 19:00 04/04/16 16:00 04/04/16 16:00 04/04/16 16:00 04/04/16 15:45 Laboratory Results 04/04/16 04:55 04/04/16 04:55 04/03/16 04/04/16 04/05/16 05:59 05:59 05:59 Intake Total 1000 2066 Output Total 600 32 Balance 400 2066 -32 PT 13.1 SEC (12.0-15.0) 04/04/16 04:55 INR 1.00 (0.83-1.16) 04/04/16 04:55 ICD10 Worksheet Patient Problems: Problems Problem Status Diagnosed SDH (subdural hematoma) Acute Intracranial hemorrhage Acute Seizures Acute
--- NOTE | 2016-04-04 17:03 | GOP ---
[f rep st] OPERATIVE REPORT DATE OF OPERATION: 04/04/2016 SURGEON: Antoni Klein MD PHILOSOPHY LECTURER: BEKAH Ashton ANESTHESIA: General. PREOPERATIVE DIAGNOSIS: POSTOPERATIVE DIAGNOSIS: Left acute on chronic subdural hematoma with mass effect, midline shift, elevated intracranial pressure and altered mental status. PROCEDURE PERFORMED: 1. Left frontal craniotomy with evacuation of subdural hematoma and relief of elevated intracranial pressure. 2. Use of intraoperative 3D Stealth navigation. FINDINGS: acute on chronic subdural hematoma SPECIMENS: None. ESTIMATED BLOOD LOSS: 20 mL. INDICATIONS: The patient is a 65-year-old woman, who had developed an acute hemorrhage several weeks ago. She was also noted to be thrombocytopenic at that time. She was subsequently discharged in good neurological function and then returned to the [facility] Emergency Department with word- finding difficulties. Head CT demonstrated a large left hemispheric subdural hematoma, acute on chronic, with midline shift and mass effect. After discussion of risks, benefits, and treatment alternatives, she decided proceed forth with surgery as described above. DESCRIPTION OF PROCEDURE: The patient was brought to the operating theater and underwent general endotracheal anesthesia without complications. She had Venodynes and JESSE hose already in place. Her head was placed in the Velazquez barrelhead inspector device and turned to the right side to expose the left side of her scalp. The patient's scalp was merged with the 3D Stealth navigation system. Using 3D Stealth navigation, we picked our entry point to the thickest portion of the left-sided hemispheric subdural hematoma. This was marked with an anterior posterior incision on the left side of her scalp. This area was prepped and draped in the usual sterile surgical fashion. A time-out was completed per protocol, and the patient received antibiotics within 1 hour of the incision. The incision was infiltrated with Marcaine with epinephrine. The incision was taken down with the scalpel blade through the subcutaneous tissues to the level of the skull. The tissues were reflected inferiorly and superiorly, and held open with cerebellar retractors. Belinda clips were applied for hemostasis. We used a quality assurance engineer drill to place a bur hole at the posterior aspect of the scalp opening. The dura was stripped from the underside of the calvarium. We used the footplate to turn a left frontal craniotomy bone flap and the bone was passed off the field. We then placed 2 dural tack-up sutures through small holes placed in the overlying calvarium. We coagulated the dura with the bipolar and obtained hemostasis with bone wax. At this point, we opened the dura with an 11 blade and she had immediate egress of high-pressure subdural hematoma. We used tenotomy scissors to continue with a cruciate opening of the dura. We then placed a drain into the subdural space and irrigated in all directions. She had evidence of acute on chronic subdural blood, which we evacuated. Once the fluid was clear, we placed a subdural drain and tunneled it out posteriorly. We reapproximated the dural leaflets with a 4-0 Nurolon suture. The bone was then reaffixed to the overlying calvarium with the plating system. The wound was irrigated copiously with bacitracin irrigation. The wound was then closed in multiple layers, including Vicryl sutures for the deep layers and a running Prolene stitch for the skin. The patient's rainage catheter was then secured sterilely to a drainage bag. She was taken out of the [place] barrelhead inspector device and her head wrapped sterilely. The patient was then awakened, extubated, and taken to the intensive care unit in stable condition. COMPLICATIONS: None. /[id number]/MODL MTDD
--- NOTE | 2016-04-04 19:32 | SOAPPROG ---
SOAP Progress Note Assessment/Plan: A/P: * Thrombocytopenia: responsive to transfusion. Last plt xfus 04/03/16 a.m. Depending on how long NS wants her plt count >100K, she may need either repeat xfus or systemic therapy for ITP (steroids, IVIG). If we need to move forward with systemic therapy, she needs additional w/u (hepatitis serologies, etc.). Typically, would recommend bmbx in her age group, but empiric therapy is an option. She plans to see Dr. Bar Acosta at [place] for heme consult, but does not have an appt. She will need close f/u and I encouraged them to make an appt now. * SDH: traumatic, evacuated today. 04/04/16 19:28 Subjective: S: Just back from surgery. No bleeding. present. O: VS reviewed. Gen: NAD, bandage clean. Laboratory Tests 04/04/16 04:55 WBC 5.17 Hgb 14.3 Plt Count 124 L Objective: Vital Signs Temp Pulse Resp BP Pulse Ox 36.5 C 72 14 104/55 L 93 04/03/16 19:00 04/04/16 19:00 04/04/16 19:00 04/04/16 19:00 04/04/16 19:00 Laboratory Results 04/04/16 04:55 04/04/16 04:55 04/03/16 04/04/16 04/05/16 05:59 05:59 05:59 Intake Total 1000 2066 888 Output Total 600 944 Balance 400 6 -56 PT 13.1 SEC (12.0-15.0) 04/04/16 04:55 INR 1.00 (0.83-1.16) 04/04/16 04:55 ICD10 Worksheet Patient Problems: Problems Problem Status Diagnosed SDH (subdural hematoma) Acute Intracranial hemorrhage Acute Seizures Acute
[2016-04-04] MEDS: FAMOTIDINE 20 MG/NACL 50 ML IV SCH (21:16)
[2016-04-04] MEDS: levETIRAcetam 500 MG TAB PO SCH (21:49)
[2016-04-04] MEDS: FAMOTIDINE 20 MG TAB PO SCH (21:49)
[2016-04-04] MEDS: CEFUROXIME 1,500 MG in NS 50 ML IV SCH (21:50)
[2016-04-05] MEDS: ACETAMINOPHEN 325 MG TAB PO PRN ×2 (01:43→20:44)
[2016-04-05] MEDS: CEFUROXIME 1,500 MG in NS 50 ML IV SCH (06:27)
[2016-04-05] MEDS: levETIRAcetam 750 MG in NS 100 ML IV SCH (08:03)
[2016-04-05] MEDS: levETIRAcetam 500 MG TAB PO SCH ×2 (08:25→21:01)
[2016-04-05] MEDS: FAMOTIDINE 20 MG/NACL 50 ML IV SCH ×2 (08:26→20:53)
[2016-04-05] MEDS: SENNOSIDES/DOCUSATE SODIUM TAB PO SCH ×2 (08:26→21:02)
[2016-04-05] MEDS: FAMOTIDINE 20 MG TAB PO SCH ×2 (08:26→21:01)
--- NOTE | 2016-04-05 08:33 | CT ---
Noncontrast Head CT 0 535 hours History: Surgical evacuation of subdural hematoma on the left. Follow-up evaluation. Technique: Standard noncontrast head CT protocol utilizing axial images was acquired through the anat varium. Images were reconstructed in multiple planes as well. Dose reduction techniques were utilized . Findings: Comparison to prior study from April 04, 2016. There has been mini craniotomy with shabnam hole placement and subdural catheter left superior parietal bone with evacuation of the subdural collection previously identified. There is gas in the anterior s ubdural space over the left frontal lobe. There is some increased density adjacent to the subdural dr ain that could represent acute blood products or packing material. There is decrease in the subdural collection on the left now measuring 5 mm (previously 11 mm). There is also decrease in ytkr-ow-egqfw shift now measuring about 3 mm (previously 7 mm). The previously visualized asymmetric dilatation of the temporal horn right lateral ventricle has resolved. The cerebral parenchyma has a normal attenuation. There are no new masses, new intracranial hemorrhag e, or evidence of recent cerebral infarction. The paranasal sinuses are clear. Impression: 1. Interval mini craniotomy and subdural drainage catheter placement with reduction of left subdural hematoma collection as detailed above. 2. Decrease in vkre-yo-jbnen shift. 3. Resolution of asymmetric dilatation of the temporal horn right lateral ventricle.
[2016-04-05 08:39] LABS: % IMMATURE GRANULYOCYTES 0.4 % (0.0-1.1); ABSOLUTE IMMATURE GRANULOCYTES 0.03 10^3/uL (0.00-0.10); ADD DIFF? NO; ADD MORPH? NO; ADD SCAN? NO; ATYPICAL LYMPHOCYTE FLAG 0 (0-99); FRAGMENT RBC FLAG 0 (0-99); HEMATOCRIT 35.3 % (38.0-47.0); HEMOGLOBIN 12.2 g/dL (12.6-16.3); LEFT SHIFT FLG 0 (0-99); LIPEMIA HEMOLYSIS FLAG 90 (0-99); MEAN CELL HEMOGLOBIN 31.5 pg (27.9-34.1); MEAN CELL HEMOGLOBIN CONCENTR. 34.6 g/dL (32.4-36.7); MEAN CELL VOLUME 91.2 fL (81.5-99.8); MEAN PLATELET VOLUME 10.3 fL (8.7-11.7); PLATELET CLUMPS FLAG 10 (0-99); PLATELET COUNT 100 10^3/uL (150-400); RED BLOOD CELL COUNT 3.87 10^6/uL (4.18-5.33); RED CELL DISTRIBUTION WIDTH 12.6 % (11.5-15.2)
--- NOTE | 2016-04-05 08:58 | NEUSURGPN ---
Assessment/Plan: A/P: 65 yo female that is s/p craniotomy for SDH evacuation -Post op HCT reviewed - some pneumocephalus, reduction in size of hematoma -PT/OT -Subdural drain with bloody csf - continue -Pain management -Diet as tolerated -TEDs, SCDs, no lovenox given hemorrhage and low platelets -D/w Dr Klein -Call NS with any issues Subjective: Pt resting in bed, denies headache at this time. at bedside. Objective: AAOx3 NAD VSS MAEx4 Motor 5/5 BUE/BLE PERRL EOMi No droop Subdural drain with bloody fluid Urinary Catheter in Place: No - Physician Discussed Patient with : [facility] Physical Exam - Vitals, I&O, Labs I and O 04/04/16 04/05/16 04/06/16 05:59 05:59 05:59 Intake Total 2066 2188 Output Total 1872 1 Balance 2065 316 -1 Intake: Oral (ml) 800 620 IV Infused (ml) 975 1568 NS W/ 20 KCl/L 1,000 ml @ 975 75 mls/hr IV CONT IBAN Rx #:[id number] NS W/ 20 KCl/L 1,000 ml @ 1568 100 mls/hr IV CONT IBAN Rx#:[id number] Platelets (ml) 291 Output: Urine (ml) 1750 Toilet 1750 CSF Drainage Amount 122 1 Left Ventriculostomy 122 1 Other: Number of Voids Toilet 3 3 Vital Signs Temp Pulse Resp BP Pulse Ox 37 C 70 14 115/62 100 04/05/16 07:58 04/05/16 07:58 04/05/16 07:58 04/05/16 07:58 04/05/16 07:58 Laboratory Results 04/05/16 08:25 04/04/16 04:55 ICD10 Worksheet Patient Problems: Problems Problem Status Diagnosed SDH (subdural hematoma) Acute Intracranial hemorrhage Acute Seizures Acute
--- NOTE | 2016-04-05 12:41 | SOAPPROG ---
SOAP Progress Note Assessment/Plan: Assessment: SOAP Progress Note Assessment/Plan: A/P: * s/p SDH evacuation, post op day 1 * Thrombocytopenia: responsive to transfusion. Last plt xfus 04/03/16 a.m. Platelet count today of 100K. I spoke with Dr. Acosta (her professional driver at [facility] ). She had a CBC done on Mar 19 with platelet count of 170. When she was discharged from [facility] on , platelets were 120K. This would suggest that platelets georges spontaneously which would argue against ITP. Still unclear what is causing the low platelets. While consumption with a bleed can lower them, usually we see that with a large bleed/hemorrhage. Would be unusual in this situation. Will discuss with neurosurgery what platelet count we want to maintain in the new few days. Plan Check CBC this afternoon Will discuss with neurosurgery what platelet threshold we should transfuse for She has an order in the [facility] system for CBC early next week. This has been ordered by her professional driver, so he will be able to review after she is discharged. Subjective: awake, appears comfortable. Her is not in the room Objective: Vital Signs Temp Pulse Resp BP Pulse Ox 37.1 C 77 20 95/61 L 97 04/05/16 09:00 04/05/16 10:00 04/05/16 10:00 04/05/16 10:00 04/05/16 10:00 Microbiology 04/03/16 02:52 Urine Culture - Final Urine,Clean Catch Five Or More [place] Types Laboratory Results 04/05/16 08:25 04/04/16 04:55 04/04/16 04/05/16 04/06/16 05:59 05:59 05:59 Intake Total 6 2188 Output Total 1872 601 Balance 2065 316 -601 PT 13.1 SEC (12.0-15.0) 04/04/16 04:55 INR 1.00 (0.83-1.16) 04/04/16 04:55 Physical Exam - Physical Exam General Appearance: alert, no apparent distress EENT: PERRL/EOMI ICD10 Worksheet Patient Problems: Problems Problem Status Diagnosed SDH (subdural hematoma) Acute Intracranial hemorrhage Acute Seizures Acute
--- NOTE | 2016-04-05 14:04 | PDINTPN ---
Suction Drum Drier Operator Progress Note Assessment/Plan: Assessment/plan: * SDH- s/p recent fall with SAH, now progressed to symptomatic SDH. S/p evacuation with drain left in place. CT with some air. Currently stable * Thrombocytopenia- unclear etiology, but does respond well to transfusion. DDx includes HIV, Hep C, SLE, CLL. Meds don't seem to fit, nor does DIC/consumptive coagulopathy. LFTs have been normal and no known HIV risk factors. She may eventually need bone marrow aspirate. Agree with simple transfusion for now. Not sure steroids/IVIG (to treat possible ITP) needed since her bleeding was traumatic. Heme/onc following Objective: Vital Signs Temp Pulse Resp BP Pulse Ox 37.1 C 72 22 H 119/64 100 04/05/16 09:00 04/05/16 12:00 04/05/16 12:00 04/05/16 12:00 04/05/16 12:00 Microbiology 04/03/16 02:52 Urine Culture - Final Urine,Clean Catch Five Or More [place] Types Laboratory Results 04/05/16 08:25 04/04/16 04:55 04/04/16 04/05/16 04/06/16 05:59 05:59 05:59 Intake Total 2066 2188 Output Total 1872 601 Balance 2066 316 -601 PT 13.1 SEC (12.0-15.0) 04/04/16 04:55 INR 1.00 (0.83-1.16) 04/04/16 04:55 Physical Exam - Physical Exam General Appearance: WD/WN, alert, no apparent distress EENT: PERRL/EOMI, normal ENT inspection Neck: full range of motion, supple Respiratory: lungs clear, normal breath sounds, No respiratory distress, No rales, No wheezing Cardiac/Chest: normal peripheral pulses, regular rate, rhythm, No edema Abdomen: normal bowel sounds, non-tender, soft Skin: normal color, warm/dry, No rash Lymphatic: No no adenopathy Extremities: normal range of motion, No pedal edema Neuro/Psych: alert, normal mood/affect, oriented x 3, No motor weakness, No cognition abnormalities ICD10 Worksheet Patient Problems: Problems Problem Status Diagnosed SDH (subdural hematoma) Acute Intracranial hemorrhage Acute Seizures Acute
--- NOTE | 2016-04-05 15:11 | CT ---
CT Head (Without Contrast) 14:04 p.m. Indication: Altered mental status. Technique: Standard noncontrast head CT protocol utilizing 5 mm thick collimated slices and field of view of 23 cm. Dose reduction techniques were utilized. Comparison: Head CT from 8 hours prior. Findings: The volume of low attenuation extra-axial blood products along the left cerebral convexity has increased in volume (best demonstrated on the coronal reconstruction). The fluid along the left f rontal lobe now measures 8 - 9 mm in thickness (previously 5 mm in thickness). Left to right shift coughlin s increased from 3 mm to 6 mm, ambient cisterns have decreased and are no longer visible, and the rig ht temporal horn is now mildly dilated. The subdural drain along the high left posterior frontal/blanquita etal lobe with adjacent hyperdense blood products is unchanged. Aguilar-white interfaces are preserved. No evidence of cortical ischemia. No intraparenchymal or intrave ntricular hemorrhage. Paranasal sinuses are clear. Pneumocephalus along the left frontal lobe is unchanged. Impression: Increasing subdural fluid along the left cerebral convexity resulting in increasing left to right shift and minimal early downward herniation (evidenced by loss of normal ambient cisterns). Comment: The results were discussed with Lesli, the patient's ICU nurse at 3:05 PM April 05 7.
[2016-04-05 15:49] LABS: HEMATOCRIT 37.9 % (38.0-47.0); HEMOGLOBIN 13.7 g/dL (12.6-16.3); MEAN CELL HEMOGLOBIN 32.9 pg (27.9-34.1); MEAN CELL HEMOGLOBIN CONCENTR. 36.1 g/dL (32.4-36.7); MEAN CELL VOLUME 90.9 fL (81.5-99.8); RED BLOOD CELL COUNT 4.17 10^6/uL (4.18-5.33); RED CELL DISTRIBUTION WIDTH 12.6 % (11.5-15.2)
[2016-04-06 05:28] LABS: % IMMATURE GRANULYOCYTES 0.3 % (0.0-1.1); ABSOLUTE IMMATURE GRANULOCYTES 0.02 10^3/uL (0.00-0.10); ADD DIFF? NO; ADD MORPH? NO; ADD SCAN? NO; ATYPICAL LYMPHOCYTE FLAG 0 (0-99); FRAGMENT RBC FLAG 0 (0-99); HEMATOCRIT 38.9 % (38.0-47.0); HEMOGLOBIN 13.7 g/dL (12.6-16.3); LEFT SHIFT FLG 0 (0-99); LIPEMIA HEMOLYSIS FLAG 90 (0-99); MEAN CELL HEMOGLOBIN 32.1 pg (27.9-34.1); MEAN CELL HEMOGLOBIN CONCENTR. 35.2 g/dL (32.4-36.7); MEAN CELL VOLUME 91.1 fL (81.5-99.8); MEAN PLATELET VOLUME 10.3 fL (8.7-11.7); PLATELET CLUMPS FLAG 0 (0-99); PLATELET COUNT 103 10^3/uL (150-400); RED BLOOD CELL COUNT 4.27 10^6/uL (4.18-5.33); RED CELL DISTRIBUTION WIDTH 12.6 % (11.5-15.2)
[2016-04-06 05:52] LABS: APTT 24.7 SEC (23.0-38.0); INR 1.02 (0.83-1.16); PROTIME(PATIENT) 13.3 SEC (12.0-15.0)
[2016-04-06] MEDS: ACETAMINOPHEN 325 MG TAB PO PRN ×2 (08:22→19:32)
[2016-04-06] MEDS: SENNOSIDES/DOCUSATE SODIUM TAB PO SCH ×2 (08:23→19:33)
[2016-04-06] MEDS: levETIRAcetam 500 MG TAB PO SCH ×2 (08:23→19:33)
[2016-04-06] MEDS: FAMOTIDINE 20 MG TAB PO SCH ×2 (08:24→19:33)
--- NOTE | 2016-04-06 09:35 | NEUSURGPN ---
Assessment/Plan: A/P: 65 yo female that is s/p craniotomy for SDH evacuation -Post op HCT - some pneumocephalus, reduction in size of hematoma. Continue NRB for pneuomocephalus. SD drain pulled back 2cm, flushed continue today if still productive. -PT/OT -Optimize Pain management -Diet as tolerated -TEDs, SCDs, no Lovenox given hemorrhage and low platelets -Seen with Dr Klein this morning -Call NS with any issues or changes in neuro exam Subjective: Denies any headaches, nausea dizziness. Objective: NAD A&Ox3 some confusion requiring reorientation. MAEx4 5/5 and equal in BUE and BLE. Incision c/d/i. CSF blood tinged. - Physician Patient Seen by : Lat[facility] Neurosurgery Physical Exam - Vitals, I&O, Labs I and O 04/05/16 04/06/16 04/07/16 05:59 05:59 05:59 Intake Total 2188 1000 Output Total 1872 2296 0 Balance 316 -1296 0 Intake: Oral (ml) 620 1000 IV Infused (ml) 1568 NS W/ 20 KCl/L 1,000 ml @ 1568 100 mls/hr IV CONT IBAN Rx#:[id number] Output: Urine (ml) 1750 2275 Toilet 1750 1850 Bedside Commode 425 CSF Drainage Amount 122 21 0 Left Ventriculostomy 122 21 0 Other: Intake Quantity Yes Sufficient Number of Voids Toilet 3 1 Bedside Commode 1 Microbiology 04/03/16 02:52 Urine Culture - Final Urine,Clean Catch Five Or More [place] Types Vital Signs Temp Pulse Resp BP Pulse Ox 37.1 C 73 17 113/69 97 04/06/16 07:37 04/06/16 07:37 04/06/16 07:37 04/06/16 07:37 04/06/16 07:37 Laboratory Results 04/06/16 05:15 04/04/16 04:55 ICD10 Worksheet Patient Problems: Problems Problem Status Diagnosed SDH (subdural hematoma) Acute Intracranial hemorrhage Acute Seizures Acute
--- NOTE | 2016-04-06 13:59 | PDINTPN ---
Nail Sticker Progress Note Assessment/Plan: Assessment/plan: * SDH- s/p recent fall with SAH, now progressed to symptomatic SDH. S/p evacuation with drain left in place. Decreased MS yesterday afternoon and repeat CT with increasing fluid and shuift. Tubing was kinked, but pulled back by NS with flushing and adequate drainage. Clinically improved, though not quite as clear as morning of 04/05. Following closely. * Thrombocytopenia- unclear etiology, but does respond well to transfusion. DDx includes HIV, Hep C, SLE, CLL. Meds don't seem to fit, nor does DIC/consumptive coagulopathy. LFTs have been normal and no known HIV risk factors. She may eventually need bone marrow aspirate. Agree with simple transfusion for now. Not sure steroids/IVIG (to treat possible ITP) needed since her bleeding was traumatic. Heme/onc following. Remains stable at 103 today. 04/06/16 13:56 Objective: Vital Signs Temp Pulse Resp BP Pulse Ox 36.9 C 67 16 104/73 98 04/06/16 12:00 04/06/16 12:00 04/06/16 12:00 04/06/16 12:00 04/06/16 12:00 Microbiology 04/03/16 02:52 Urine Culture - Final Urine,Clean Catch Five Or More [place] Types Laboratory Results 04/06/16 05:15 04/04/16 04:55 04/05/16 04/06/16 04/07/16 05:59 05:59 05:59 Intake Total 2188 1000 Output Total 1872 2296 0 Balance 316 -1296 0 PT 13.3 SEC (12.0-15.0) 04/06/16 05:15 INR 1.02 (0.83-1.16) 04/06/16 05:15 Physical Exam - Physical Exam General Appearance: WD/WN, other (awake and cooperative; mostly oriented) EENT: PERRL/EOMI, normal ENT inspection Neck: full range of motion, supple Respiratory: lungs clear, normal breath sounds, No respiratory distress, No rales, No wheezing Cardiac/Chest: normal peripheral pulses, regular rate, rhythm Abdomen: normal bowel sounds, non-tender, soft, No organomegaly Skin: normal color, warm/dry, No rash Lymphatic: no adenopathy Extremities: non-tender, No pedal edema Neuro/Psych: alert ICD10 Worksheet Patient Problems: Problems Problem Status Diagnosed SDH (subdural hematoma) Acute Intracranial hemorrhage Acute Seizures Acute
--- NOTE | 2016-04-06 14:18 | SOAPPROG ---
SOAP Progress Note Assessment/Plan: A/P: * Thrombocytopenia: responsive to transfusion. Last plt xfus 04/03/16 a.m. Depending on how long NS wants her plt count >100K, she may need either repeat xfus or systemic therapy for ITP (steroids, IVIG). If we need to move forward with systemic therapy, she needs additional w/u (hepatitis serologies, etc.). Typically, would recommend bmbx in her age group, but empiric therapy is an option. She plans to see Dr. Bar Acosta at [place] for heme consult, but does not have an appt. She will need close f/u and I encouraged them to make an appt now. * SDH: traumatic, evacuated today. 04/06/16 14:18 Objective: Vital Signs Temp Pulse Resp BP Pulse Ox 36.9 C 67 16 104/73 98 04/06/16 12:00 04/06/16 12:00 04/06/16 12:00 04/06/16 12:00 04/06/16 12:00 Microbiology 04/03/16 02:52 Urine Culture - Final Urine,Clean Catch Five Or More [place] Types Laboratory Results 04/06/16 05:15 04/04/16 04:55 04/05/16 04/06/16 04/07/16 05:59 05:59 05:59 Intake Total 2188 1000 450 Output Total 1872 2296 300 Balance 316 -1296 150 PT 13.3 SEC (12.0-15.0) 04/06/16 05:15 INR 1.02 (0.83-1.16) 04/06/16 05:15 ICD10 Worksheet Patient Problems: Problems Problem Status Diagnosed SDH (subdural hematoma) Acute Intracranial hemorrhage Acute Seizures Acute
--- NOTE | 2016-04-06 14:22 | SOAPPROG ---
SOAP Progress Note Assessment/Plan: A/P: * Thrombocytopenia: responsive to transfusion. Last plt xfus 04/03/16 a.m. Platelet count stable. Her [place] road machine runner, Dr. Bar Acosta, has arranged for lab draw early in the week if she is discharged. She will be seeing him for further w/u, etc. * SDH: traumatic, s/p evacuation. 04/06/16 14:18 Subjective: S: Drain pulled back. not present. O: VS reviewed. Gen: sleeping, did not wake her. Laboratory Tests 04/06/16 05:15 WBC 6.55 Hgb 13.7 Plt Count 103 L PT 13.3 INR 1.02 APTT 24.7 Fibrinogen 428 Objective: Vital Signs Temp Pulse Resp BP Pulse Ox 36.9 C 67 16 104/73 98 04/06/16 12:00 04/06/16 12:00 04/06/16 12:00 04/06/16 12:00 04/06/16 12:00 Microbiology 04/03/16 02:52 Urine Culture - Final Urine,Clean Catch Five Or More [place] Types Laboratory Results 04/06/16 05:15 04/04/16 04:55 04/05/16 04/06/16 04/07/16 05:59 05:59 05:59 Intake Total 2188 1000 450 Output Total 1872 2296 300 Balance 316 -1296 150 PT 13.3 SEC (12.0-15.0) 04/06/16 05:15 INR 1.02 (0.83-1.16) 04/06/16 05:15 ICD10 Worksheet Patient Problems: Problems Problem Status Diagnosed SDH (subdural hematoma) Acute Intracranial hemorrhage Acute Seizures Acute
--- NOTE | 2016-04-06 15:18 | CT ---
CT Head Without Contrast, 14:57 History: Follow-up craniotomy for subdural hematoma with a left subdural drain in place. Comparison: Yesterday 14:04 Technique: Noncontrast images through the head. Soft tissue and bone window evaluation is performed. Dose reduction techniques were utilized. Findings: There is little if any change in 7 mm of qtre-ce-rqvlu shift. Compression of the left later al ventricle is stable. A left subdural drain, subdural fluid with a small amount of hemorrhage and s ubdural air are again present. There is no significant change in rightward torquing of the midbrain a nd third ventricle with distorted compression of the ambient cistern. There is no parenchymal, subara chnoid or intraventricular hemorrhage. Impression: Little if any change since yesterday Results called to Mirta Griffiths at 3:16 pm. General information for patients regarding this examination can be found at [email or web address]. If you have questions or comments about this report, please contact me at [phone] (hospital) or [phone] (cell).
[2016-04-07] MEDS: SENNOSIDES/DOCUSATE SODIUM TAB PO SCH ×2 (09:37→19:42)
[2016-04-07] MEDS: levETIRAcetam 500 MG TAB PO SCH ×2 (09:38→20:07)
[2016-04-07] MEDS: FAMOTIDINE 20 MG TAB PO SCH ×2 (09:39→20:07)
[2016-04-07 11:01] LABS: ANION GAP 9 mEq/L (8-16); CALCIUM 9.3 mg/dL (8.5-10.4); CARBON DIOXIDE 24 mEq/l (22-31); CHLORIDE 105 mEq/L (97-110); CREATININE 0.8 mg/dL (0.6-1.0); GLOMERULAR FILTRATION RATE > 60; GLUCOSE 98 mg/dL (70-100); POTASSIUM 4.4 mEq/L (3.5-5.2); SODIUM 138 mEq/L (134-144)
--- NOTE | 2016-04-07 11:37 | NEUSURGPN ---
Date of Surgery: 04/04/16 Post Op Day: 3 Assessment/Plan: Assessment/Plan: A/P: 65 yo female that is s/p craniotomy for SDH evacuation -Post op HCT - some pneumocephalus, reduction in size of hematoma. Drain put out 2cc overnight, will d/c today -PT/OT -Diet as tolerated -TEDs, SCDs, no Lovenox given hemorrhage and low platelets -discharge planning -Call NS with any issues or changes in neuro exam Subjective: no complaints Objective: NAD A&Ox3 some confusion requiring reorientation, waxes and wanes. MAEx4 5/5 and equal in BUE and BLE. Incision c/d/i. - Physician Patient Seen by : [facility] Physical Exam - Vitals, I&O, Labs I and O 04/06/16 04/07/16 04/08/16 05:59 05:59 05:59 Intake Total 1000 650 Output Total 2296 727 2 Balance -1296 -77 -2 Intake: Oral (ml) 1000 650 Output: Urine (ml) 2275 725 Toilet 1850 Bedside Commode 425 725 CSF Drainage Amount 21 2 2 Left Ventriculostomy 21 2 2 Other: Intake Quantity Yes Yes Sufficient Number of Voids Toilet 1 Bedside Commode 1 1 Number of Stools Bedside Commode 1 Vital Signs Temp Pulse Resp BP Pulse Ox 37.0 C 86 21 H 104/74 100 04/07/16 08:00 04/07/16 10:00 04/07/16 10:00 04/07/16 10:00 04/07/16 10:00 Laboratory Results 04/06/16 05:15 04/07/16 10:25 ICD10 Worksheet Patient Problems: Problems Problem Status Diagnosed SDH (subdural hematoma) Acute Intracranial hemorrhage Acute Seizures Acute
--- NOTE | 2016-04-07 13:47 | PDINTPN ---
Lead Atg Developer Progress Note Assessment/Plan: Assessment/plan: 65 F admitted 04/03 with visual changes and altered consciousness. She had recently been admitted to [facility] after a mechanical fall with SAH in setting of chronic thrombocytopenia but no intervention was required other than platlet transfusion. On admit her CT showed a new SDH and she required craniotomy and drainage along with additional platelets. On POD #2-3 her MS declined and a repeat CT showed an increased fluid collection and slight increase in midline shift. She had additional fluid drained, the drain was pulled back some and was dc'd 04/07. Her thrombocytopenia remains idiopathic but stable. * SDH- s/p recent fall with SAH, now progressed to symptomatic SDH. S/p evacuation with drain left in place. About the same. Repeat CT shows stability and drain dc'd today. * Thrombocytopenia- unclear etiology, but does respond well to transfusion. DDx includes ITP, HIV, Hep C, SLE, CLL. Meds don't seem to fit, nor does DIC/ consumptive coagulopathy. LFTs have been normal and no known HIV risk factors. She may eventually need bone marrow aspirate. Agree with simple transfusion for now. Not sure steroids/IVIG (to treat possible ITP) needed since her bleeding was traumatic. Heme/onc following. Hep serologies, MAR pending. Objective: Vital Signs Temp Pulse Resp BP Pulse Ox 37.1 C 80 23 H 101/59 L 100 04/07/16 12:00 04/07/16 12:00 04/07/16 12:00 04/07/16 12:00 04/07/16 12:00 Laboratory Results 04/06/16 05:15 04/07/16 10:25 04/06/16 04/07/16 04/08/16 05:59 05:59 05:59 Intake Total 1000 650 Output Total 2296 727 2 Balance -1296 -77 -2 PT 13.3 SEC (12.0-15.0) 04/06/16 05:15 INR 1.02 (0.83-1.16) 04/06/16 05:15 Physical Exam - Physical Exam General Appearance: alert, no apparent distress, other (mild confusion) EENT: PERRL/EOMI, normal ENT inspection, pharynx normal Neck: full range of motion, supple Respiratory: lungs clear, normal breath sounds, No respiratory distress, No rales, No rhonchi Cardiac/Chest: normal peripheral pulses, regular rate, rhythm, No edema Abdomen: normal bowel sounds, non-tender, soft, No organomegaly Skin: normal color, warm/dry, No rash Lymphatic: no adenopathy Extremities: normal range of motion, non-tender, No pedal edema Neuro/Psych: alert, normal mood/affect, oriented x 3, 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
--- NOTE | 2016-04-07 14:33 | SOAPPROG ---
SOAP Progress Note Assessment/Plan: Assessment/Plan: 65 yo woman w SAH leading to SDH s/p evacuation; also w thrombocytopenia of unclear etiology 1. Thrombocytopenia - multiple tests pending, RF came back negative I would say unlikely to be ITP has plts improved w transfusion alone (no steroids or IVIG) - in many cases can transfusion tend to make ITP worse PLts >100k and have been stable since last transfusion on 04/03 [facility], Dr Bar Acosta, has arranged follow up early next week if she is discharged She will be seeing him for further workup 2. SDH: traumatic, drain out today, NSG feels she is doing well 04/07/16 14:30 Subjective: No acute event denies GONSALEZ or neuro changes at bedside Objective: Vital Signs Temp Pulse Resp BP Pulse Ox 37.1 C 81 20 104/55 L 96 04/07/16 12:00 04/07/16 14:00 04/07/16 14:00 04/07/16 14:00 04/07/16 14:00 Laboratory Results 04/06/16 05:15 04/07/16 10:25 04/06/16 04/07/16 04/08/16 05:59 05:59 05:59 Intake Total 1000 650 Output Total 2296 727 2 Balance -1296 -77 -2 PT 13.3 SEC (12.0-15.0) 04/06/16 05:15 INR 1.02 (0.83-1.16) 04/06/16 05:15 Gen - sitting in chair, NAD but fatigues appearing HEENT - EOMI CV - RRR Chest - CTA Abd - soft Ext - no sig edema Neuro - nonfocal ICD10 Worksheet Patient Problems: Problems Problem Status Diagnosed SDH (subdural hematoma) Acute Intracranial hemorrhage Acute Seizures Acute
[2016-04-08 05:44] LABS: % IMMATURE GRANULYOCYTES 0.4 % (0.0-1.1); ABSOLUTE IMMATURE GRANULOCYTES 0.03 10^3/uL (0.00-0.10); ADD DIFF? NO; ADD MORPH? NO; ADD SCAN? NO; ATYPICAL LYMPHOCYTE FLAG 0 (0-99); FRAGMENT RBC FLAG 0 (0-99); HEMATOCRIT 38.4 % (38.0-47.0); HEMOGLOBIN 13.8 g/dL (12.6-16.3); LEFT SHIFT FLG 0 (0-99); LIPEMIA HEMOLYSIS FLAG 90 (0-99); MEAN CELL HEMOGLOBIN 31.8 pg (27.9-34.1); MEAN CELL HEMOGLOBIN CONCENTR. 35.9 g/dL (32.4-36.7); MEAN CELL VOLUME 88.5 fL (81.5-99.8); MEAN PLATELET VOLUME 10.4 fL (8.7-11.7); PLATELET CLUMPS FLAG 10 (0-99); PLATELET COUNT 111 10^3/uL (150-400); RED BLOOD CELL COUNT 4.34 10^6/uL (4.18-5.33); RED CELL DISTRIBUTION WIDTH 12.3 % (11.5-15.2)
[2016-04-08] MEDS: levETIRAcetam 500 MG TAB PO SCH ×2 (09:00→21:46)
[2016-04-08] MEDS: SENNOSIDES/DOCUSATE SODIUM TAB PO SCH ×2 (09:00→21:47)
[2016-04-08] MEDS: FAMOTIDINE 20 MG TAB PO SCH ×2 (09:00→21:46)
[2016-04-08] MEDS: ACETAMINOPHEN 325 MG TAB PO PRN ×2 (09:00→17:18)
--- NOTE | 2016-04-08 10:28 | NEUSURGPN ---
Date of Surgery: 04/04/16 Post Op Day: 4 Assessment/Plan: Assessment/Plan: A/P: 65 yo female that is s/p craniotomy for SDH evacuation -drain d/c'd yesterday -tx to floor today -PT/OT -Diet as tolerated -TEDs, SCDs, no Lovenox given hemorrhage and low platelets -discharge planning for inpatient rehab -patient and updated -Call NS with any issues or changes in neuro exam Subjective: no complaints Objective: oriented to person, place, time, and situation today strength full, no drift wound c/d/i - Physician Patient Seen by : [facility] Neurosurgery Physical Exam - Vitals, I&O, Labs I and O 04/07/16 04/08/16 04/09/16 05:59 05:59 05:59 Intake Total 650 600 Output Total 727 2 Balance -77 598 Intake: Oral (ml) 650 600 Output: Urine (ml) 725 Bedside Commode 725 CSF Drainage Amount 2 2 Left Ventriculostomy 2 2 Other: Intake Quantity Yes Yes Sufficient Number of Voids Toilet 3 Bedside Commode 1 1 Number of Stools Toilet 1 Bedside Commode 1 Vital Signs Temp Pulse Resp BP Pulse Ox 36.8 C 74 19 96/63 L 98 04/08/16 08:00 04/08/16 10:00 04/08/16 10:00 04/08/16 10:00 04/08/16 10:00 Laboratory Results 04/08/16 05:30 04/07/16 10:25 ICD10 Worksheet Patient Problems: Problems Problem Status Diagnosed SDH (subdural hematoma) Acute Intracranial hemorrhage Acute Seizures Acute
--- NOTE | 2016-04-08 11:11 | CT ---
CT Head Without Contrast History: Neurologic changes. Status post subdural hematoma evacuation. Comparison: April 06, 2016. Technique: Standard noncontrast head CT protocol utilizing axial images acquired through the calvari um. Images were reconstructed down to 1.25-mm slice thickness as well. Radiation dose technique was u tilized. Findings: Craniotomy defect is seen in the left parietal skull with interval removal of the subdural drain. At the site of the prior subdural drain, there is increased attenuation in the subdural fluid, indicating acute hemorrhage with a similar pattern to the prior exam. There is mild pneumocephalus a t the craniotomy site. Pneumocephalus anteriorly in the left frontal fossa has diminished over the in terval. Subdural fluid remains similar in thickness anteriorly and posteriorly of 11-[address] with subfalcine midline shift of left to right is unchanged at 7 mm. There is mild compression of the left lateral ventricle, stable in appearance. No new intracranial hemorrhage is visualized. No ev idence for acute infarct. Impression: Postsurgical changes of left parietal craniotomy with removal of the left subdural drain. The left subdural hematoma is stable in size. There continues to be a component of acute hemorrhage near the craniotomy site and prior subdural drain placement. The amount of pneumocephalus has diminis hed. Midline shift subfalcine of left to right is stable.
--- NOTE | 2016-04-08 12:35 | PDINTPN ---
Pewter Caster Progress Note Assessment/Plan: Assessment/plan: 65 F admitted 04/03 with visual changes and altered consciousness. She had recently been admitted to [facility] after a mechanical fall with SAH in setting of chronic thrombocytopenia but no intervention was required other than platlet transfusion. On admit her CT showed a new SDH and she required craniotomy and drainage along with additional platelets. On POD #2-3 her MS declined and a repeat CT showed an increased fluid collection and slight increase in midline shift. She had additional fluid drained, the drain was pulled back some and was dc'd 04/07. Her thrombocytopenia remains idiopathic but stable. * SDH- s/p recent fall with SAH, now progressed to symptomatic SDH. S/p evacuation with drain left in place. About the same. Repeat CT shows stability and drain dc'd 04/07. More alert 04/08 with ecxpected variable MS. Head CT repeated today and without change.. * Thrombocytopenia- unclear etiology, but does respond well to transfusion. DDx includes ITP, HIV, Hep C, SLE, CLL. Meds don't seem to fit, nor does DIC/ consumptive coagulopathy. LFTs have been normal and no known HIV risk factors. She may eventually need bone marrow aspirate. Heme/onc following. Hep serologies , MAR pending. Can complete ybarra as outpatient. Likely to floor today 04/08/16 12:33 Objective: Vital Signs Temp Pulse Resp BP Pulse Ox 36.8 C 72 19 103/65 95 04/08/16 12:00 04/08/16 12:00 04/08/16 12:00 04/08/16 12:00 04/08/16 12:00 Laboratory Results 04/08/16 05:30 04/07/16 10:25 04/07/16 04/08/16 04/09/16 05:59 05:59 05:59 Intake Total 650 600 Output Total 727 2 Balance -77 598 PT 13.3 SEC (12.0-15.0) 04/06/16 05:15 INR 1.02 (0.83-1.16) 04/06/16 05:15 Physical Exam - Physical Exam General Appearance: alert, no apparent distress EENT: PERRL/EOMI, pharynx normal Neck: full range of motion, supple Respiratory: lungs clear, normal breath sounds, No respiratory distress, No rales, No wheezing Cardiac/Chest: normal peripheral pulses, regular rate, rhythm, No edema Abdomen: normal bowel sounds, non-tender, soft, No organomegaly Skin: warm/dry, No rash Lymphatic: no adenopathy Extremities: normal range of motion, No pedal edema Neuro/Psych: alert, normal mood/affect, oriented x 3 ICD10 Worksheet Patient Problems: Problems Problem Status Diagnosed SDH (subdural hematoma) Acute Intracranial hemorrhage Acute Seizures Acute
--- NOTE | 2016-04-08 13:06 | SOAPPROG ---
SOAP Progress Note Assessment/Plan: Assessment/Plan: 65 yo woman w SAH leading to SDH s/p evacuation; also w thrombocytopenia of unclear etiology 1. Thrombocytopenia - improved; multiple tests pending, RF came back negative I would say unlikely to be ITP as plts improved w transfusion alone (no steroids or IVIG) - in many cases transfusion can tend to make ITP worse PLts >100k and going up; last transfusion on 04/03 [facility], Dr Bar Acosta, has arranged follow up early next week if she is discharged She will be seeing him for further workup 2. SDH: traumatic, drain out 04/07, NSG feels she is doing well Transfer to floor today 04/08/16 13:04 Subjective: No neuro changes More lucid today CT head stable Objective: Vital Signs Temp Pulse Resp BP Pulse Ox 36.8 C 72 19 103/65 95 04/08/16 12:00 04/08/16 12:00 04/08/16 12:00 04/08/16 12:00 04/08/16 12:00 Laboratory Results 04/08/16 05:30 04/07/16 10:25 04/07/16 04/08/16 04/09/16 05:59 05:59 05:59 Intake Total 650 600 Output Total 727 2 Balance -77 598 PT 13.3 SEC (12.0-15.0) 04/06/16 05:15 INR 1.02 (0.83-1.16) 04/06/16 05:15 Gen - NAD, alert and oriented HEENT - anicteric CV - RRR abd - soft, do not palpate spleen Ext - no sig edema Neuro - no change ICD10 Worksheet Patient Problems: Problems Problem Status Diagnosed SDH (subdural hematoma) Acute Intracranial hemorrhage Acute Seizures Acute
[2016-04-09 05:52] LABS: % IMMATURE GRANULYOCYTES 0.6 % (0.0-1.1); ABSOLUTE IMMATURE GRANULOCYTES 0.03 10^3/uL (0.00-0.10); ADD DIFF? NO; ADD MORPH? NO; ADD SCAN? NO; ATYPICAL LYMPHOCYTE FLAG 10 (0-99); FRAGMENT RBC FLAG 0 (0-99); HEMATOCRIT 37.4 % (38.0-47.0); HEMOGLOBIN 13.4 g/dL (12.6-16.3); LEFT SHIFT FLG 0 (0-99); LIPEMIA HEMOLYSIS FLAG 90 (0-99); MEAN CELL HEMOGLOBIN 32.8 pg (27.9-34.1); MEAN CELL HEMOGLOBIN CONCENTR. 35.8 g/dL (32.4-36.7); MEAN CELL VOLUME 91.4 fL (81.5-99.8); MEAN PLATELET VOLUME 10.6 fL (8.7-11.7); PLATELET CLUMPS FLAG 10 (0-99); PLATELET COUNT 99 10^3/uL (150-400); RED BLOOD CELL COUNT 4.09 10^6/uL (4.18-5.33); RED CELL DISTRIBUTION WIDTH 12.3 % (11.5-15.2)
[2016-04-09] MEDS: ACETAMINOPHEN 325 MG TAB PO PRN ×2 (06:45→13:45)
--- NOTE | 2016-04-09 07:39 | SOAPPROG ---
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 Objective: Vital Signs Temp Pulse Resp BP Pulse Ox 37.1 C 74 12 100/62 95 04/09/16 05:30 04/09/16 05:30 04/09/16 05:30 04/09/16 05:30 04/09/16 05:30 Laboratory Results 04/09/16 04:30 04/07/16 10:25 04/08/16 04/09/16 04/10/16 05:59 05:59 05:59 Intake Total 600 900 Output Total 2 Balance 598 900 PT 13.3 SEC (12.0-15.0) 04/06/16 05:15 INR 1.02 (0.83-1.16) 04/06/16 05:15 AAOx4, +FC PERRL, EOMI, no facial droop 5/5 +light touch C/D/I ICD10 Worksheet Patient Problems: Problems Problem Status Diagnosed SDH (subdural hematoma) Acute Intracranial hemorrhage Acute Seizures Acute
[2016-04-09 07:46] VITALS: BP 101/59; PULSE 72; RESP 16; TEMP 98.2; O2SAT 93
[2016-04-09] MEDS: levETIRAcetam 500 MG TAB PO SCH (08:33)
[2016-04-09] MEDS: SENNOSIDES/DOCUSATE SODIUM TAB PO SCH (08:33)
[2016-04-09] MEDS: FAMOTIDINE 20 MG TAB PO SCH (08:33)
[2016-04-09 10:26] LABS: HEPATITIS Bs Ab QUANT <5.0 mIU/mL (())
--- NOTE | 2016-04-09 12:10 | SOAPPROG ---
SOAP Progress Note Assessment/Plan: Assessment: 1) Thrombocytopenia 2) Tramatic SAH / SDH Plan: Patient's platelet count remains overall stable. I agree with Dr. Cevallos that the overall clinical picture is not c/w acute DIC. She has responded to platelet transfusion, and "held on" to transfused platelets. 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 No indication for transfusion currently. She will likely be discharged today or tomorrow. She plans to follow up with [facility] foreman/project manager Dr. Selwyn Acosta. I will update him about her case. Our service has been in contact with him. She should have a repeat CBC checked later this week as an outpatient. Hematology management jean marie be assumed by Dr. Acosta (her Steward foreman/project manager) at discharge. Plan discussed with patient, , nursing. 04/09/16 12:06 04/09/16 12:10 Subjective: Likely d/c today or tomorrow. No bleeding. Platelet count stable (99k) at bedside Objective: Vital Signs Temp Pulse Resp BP Pulse Ox 36.8 C 72 16 101/59 L 93 04/09/16 07:44 04/09/16 07:44 04/09/16 07:44 04/09/16 07:44 04/09/16 07:44 Laboratory Results 04/09/16 04:30 04/07/16 10:25 04/08/16 04/09/16 04/10/16 05:59 05:59 05:59 Intake Total 600 900 Output Total 2 Balance 598 900 PT 13.3 SEC (12.0-15.0) 04/06/16 05:15 INR 1.02 (0.83-1.16) 04/06/16 05:15 - Time Spent With Patient Time Spent With Patient: 25 minutes Physical Exam - Physical Exam General Appearance: alert, no apparent distress EENT: PERRL/EOMI Back: Other (No ecchymosis or petichiae) Neuro/Psych: other (Oriented x 3. Mild difficulty processing information. Answers questions appropriately) ICD10 Worksheet Patient Problems: Problems Problem Status Diagnosed SDH (subdural hematoma) Acute Intracranial hemorrhage Acute Seizures Acute
--- NOTE | 2016-04-09 12:10 | PDIAF ---
- Diagnosis Code Status: Full Code - Medication Management Discharge Medications: Medications to Continue on Transfer Cholecalciferol Vit D3 [Vitamin D3 (*)] 1,000 units PO DAILY 03/10/16 [Last Taken Unknown] Multivitamins [Multivitamin (*)] 1 each PO DAILY 03/10/16 [Last Taken Unknown] Acetaminophen [Tylenol 325mg (*)] 650 mg PO Q4HRS PRN #0 tab 03/12/16 [Last Taken Unknown] levETIRAcetam [Keppra 500 mg (*)] 750 mg PO BID #0 tab 04/09/16 [Last Taken Unknown] oxyCODONE/APAP 5/325 [Percocet 5/325 (*)] 1 - 2 tab PO Q4HRS PRN #0 tab [Last Taken Unknown] Discharge Medications: Refer to the Discharge Home Medication list for PRN reason. - Orders Services needed: Physical Therapy, Occupational Therapy, Speech Language Pathologist Diet Recommendation: no restrictions on diet Diet Texture: Regular Texture Diet Date to Remove Sutures/[place]: 04/19/16 - Follow Up Care Current Providers and Referrals: [place],. [Primary Care Provider] - As per Instructions
[2016-04-09 13:22] LABS: ANTINUCLEAR ANTIBODIES SCREEN 0.28 UNITS (<1.00)
--- NOTE | 2016-04-18 14:49 | GDS ---
[f rep st] DISCHARGE SUMMARY ADMISSION DIAGNOSIS: Subdural hematoma. DISCHARGE DIAGNOSIS: Status post craniotomy for evacuation of subdural hematoma. HISTORY AND PHYSICAL: Please see admission history and physical. HOSPITAL COURSE: The patient is a 65-year-old female who slipped and fell in late February and suffe red intracerebral hemorrhage at that point in time. She re-presented to the emergency department on 04/02/2016 with some difficulty with word finding and headaches. She was found to have a left-sided subdural hematoma. She was taken to the operating room on 04/04/2016, where she underwent a left-carie ed craniotomy for evacuation of subdural hematoma. There were no intraoperative complications, and s he was admitted to the ICU. She was followed in the ICU with a subdural drain and serial head CTs. She made fair progress with physical therapy and occupational therapy. Her subdural drain was subseq uently removed. She was discharged to [facility] on 04/09/2016. Patient was discharged with aircraft stress analyst niotomy instructions and recommended she follow up with Dr. Klein in approximately 2 weeks with a re peat head CT without contrast. /[id number]/MODL
== END 2016-04-09 14:00 | DRG 27 ==
LOC: F2N 04-03 00:53
PROVIDERS: ADMIT Neurological Surgery; ATTEND Neurological Surgery
PROC: 30233R1 Transfusion of Nonautologous Platelets into Peripheral Vein, Percutaneous Approach (ICD-10-PCS; 2016-04-02)
PROC: 009400Z Drainage of Intracranial Subdural Space with Drainage Device, Open Approach (ICD-10-PCS; principal; 2016-04-04 14:00)
PROC: 00C40ZZ Extirpation of Matter from Intracranial Subdural Space, Open Approach (ICD-10-PCS; principal; 2016-04-04 14:00)
DX: S06.5X0A Traumatic subdural hemorrhage without loss of consciousness, initial encounter (principal); D69.6 Thrombocytopenia, unspecified; W01.0XXA Fall on same level from slipping, tripping and stumbling without subsequent striking against object, initial encounter; Y93.21 Activity, ice skating; Y92.330 Ice skating rink (indoor) (outdoor) as the place of occurrence of the external cause; Y99.8 Other external cause status
CPT/HCPCS: 80305; 86334-90; 92507-GN; 92523-GN; 96374; 97112-GP; 97116-GP; 97162-GP; 97166-GO; 97530-GO; 97530-GP; 97535-GO; C1713; C1729; G0472; G8978-GP-CK; G8979-GP-CI; J0697; J1953; J2704; J2710; J3010; P9035; P9041

== ENCOUNTER 2016-04-09 10:39 | Inpatient (IN) | payer OTHER ==
[2016-04-09] MEDS ORDERED: OXYCODONE/APAP 5/325 TAB PO PRN (15:44)
[2016-04-09] MEDS ORDERED: BISACODYL 10 MG SUPP PR PRN (15:49)
--- NOTE | 2016-04-09 17:14 | GHP ---
[f rep st] HISTORY AND PHYSICAL POST ADMISSION PHYSICIAN EVALUATION AND REHABILITATION TREATMENT PLAN DATE OF ADMISSION: 04/09/2016 DATE OF EVALUATION: 04/09/2016 TIME OF EVALUATION: 1534 REFERRING FACILITY: [facility]. REFERRING PHYSICIAN: Rush Song MD IMPAIRMENT GROUP: [id number] DATE OF ONSET: 04/02/2016 CONSULTING PHYSICIANS: 1. Oncology service, initially Dr. Patrick, subsequently Dr. Aleman, Dr. Cevallos and Dr. Parekh. 2. Intensive care, Dr. Sahu and Dr. Smith. 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 ETIOLOGIC DIAGNOSIS: Traumatic closed injury. DATE OF SURGERY: 04/04/2016 HISTORY OF PRESENT ILLNESS: Mrs. Blum initially came to the hospital on 03/10/2016. She had fallen several days before while ice skating and then she had a seizure, which brought her into the hospital. At that time, she was evaluated with CT scanning and seen by Neurosurgery. There was also an MRI of the brain done and MR angiogram as well as serial CT scans. She was found to have an extra-axial hemorrhage along the left frontal convexity with mild mass effect, as well as a left frontal subdural hematoma. This was shown to be stable over 2 days on repeat imaging and her neurologic exam remained stable, and so she returned home on 03/12/2016. She returned to the hospital on 04/02/2016 having had the onset of malaise, word-finding difficulties, and shuffling gait. CT scanning at that time, showed a left-sided subacute subdural hematoma measuring approximately 12 mm at its greatest thickness causing left to right midline shift. She was admitted to the ICU, and she underwent surgery with a left-sided craniotomy to evacuate the subdural hematoma. She had thrombocytopenia when she initially presented, and continuing through her hospital stay. She was seen by Hematology/Oncology. Tests were done regarding connective tissue disease, autoimmune and chronic viral infections including hepatitis, with no etiology of the thrombocytopenia found. She had a platelet transfusion and her platelet counts remained stable. On postoperative days 2 and 3, she had further mental status decline. A repeat head CT showed increased fluid collection and slight increase in midline shift. She had additional fluid drained. The drain was ultimately discontinued on . Other studies and labs during her stay: On her CBC today she had very mild anemia with a hematocrit of 37.4, and platelet count was 99. Otherwise her CBC was overall within normal limits. There was no coagulopathy appreciated with tests of PT and PTT. Her D-dimer was elevated when she first presented to the hospital. Serum chemistry revealed normal renal function and electrolytes on . She appeared somewhat dehydrated with a BUN of 26 and a creatinine of 0.8. Liver function tests were within normal limits. Urinalysis was consistent with a possible UTI with 1+ leukocyte esterase, but her urine culture grew 5 different organisms. Toxicology in the urine was negative for any substances of abuse. PRECAUTIONS: She is a fall risk. She has seizure precautions. ACTIVE COMORBIDITIES: She has no active tier 1, tier 2, or tier 3 comorbidities. PAST MEDICAL HISTORY: Psoriasis which she says is episodic. PAST SURGICAL HISTORY: She has had bilateral cataract surgery. PRE-HOSPITAL MEDICATIONS: Calcium and vitamins. ADMISSION MEDICATIONS: 1. Oxycodone/acetaminophen 5/325, 1-2 tablets p.o. q.4 hours p.r.n. 2. Acetaminophen 650 mg p.o. q.4 hours p.r.n. 3. Levetiracetam 750 mg p.o. twice daily. 4. Multivitamin 1 p.o. daily. 5. Cholecalciferol 1000 units p.o. daily. ALLERGIES: There are no known drug allergies. FAMILY HISTORY: There is no family history of clotting disorders or of low platelets or other impaired blood cell lines. 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 She is and lives with her . There are 2 short flights of steps in the house. She is a nonsmoker. She uses occasional alcohol. She has a local son and grandchildren. REVIEW OF SYSTEMS: She denies headache, vision changes, weakness, numbness or tingling of the extremities or difficulty swallowing. She is not in pain. She has no cough or dyspnea. She has no vomiting, nausea, constipation, or diarrhea. She has no dysuria or urinary frequency. There is no joint pain or joint swelling. There is no skin rash or skin breakdown. She is in good spirits. She has noticed some difficulty with word finding and fatigue, and she acknowledges problems with balance. Otherwise a 10-point review of systems is negative. PHYSICAL EXAM: VITAL SIGNS: Blood pressure is 99/66, heart rate is 87, respiratory rate is 14, oxygen saturation is 94% on room air. Temperature is 37 degrees centigrade. Her weight is 54 kg for a body mass index of 20.4. GENERAL: This is a well-nourished, well-developed woman who appears her chronologic age. Cooperative and in no acute distress. HEENT: Extraocular movements are intact. Left pupil is less than perfectly round. Right pupil is round. Both pupils are reactive to light. Mucous membranes are moist. Dentition is in good condition. Her airway is uncrowded. NECK: Supple. HEART : There is a regular rate and rhythm with no murmurs, rubs, or gallops. LUNGS : Clear to auscultation bilaterally. ABDOMEN: Soft, nontender, nondistended with normoactive bowel sounds and no hepatosplenomegaly. EXTREMITIES. There is no cyanosis, clubbing, or edema. Radial and dorsalis pedis pulses are 2+ bilaterally. NEUROLOGIC: She is alert and oriented to the month, the year, and her location; she is off by 1 on the date, thinking that today is April 10 instead of the . Cranial nerves 2-12 are grossly intact. There is no focal weakness overall, except her left hamstring is perhaps 4/5 rather than 5/ 5. She has minor difficulty following instructions regarding the neurologic exam. Sensation is intact to light touch. She has no extinction to double simultaneous stimulation. [id number]-[id number] testing is normal bilaterally. CURRENT LEVEL OF FUNCTION: Per the pre-admission screen regarding diet, feeding , and swallowing, she was on a regular diet and requiring set up. For grooming , she required minimal assistance. For bathing, she needed assistance. For dressing, she needed assistance. For toileting, she needed assistance. For bed mobility, she was noted to require minimal assistance of 2. For transfers, she required moderate assistance. She was using a front-wheeled walker or a 4- wheeled walker. Balance required contact guard assist. Endurance was poor. She walked 225 feet with contact guard assist. Regarding cognition, she required minimal to moderate assistance. IMPRESSION: Mrs. Blum is a 65-year-old woman who suffered a fall and a subdural hematoma with gradual expansion. The initial injury was on 02/08. She was hospitalized and sent home after 3 days with normal neurologic exam and stable hemorrhage on serial brain imaging. In the days just before she had change in mental status and physical functioning, with word- finding difficulties and shuffling gait. She was brought back to the hospital where imaging revealed expansion of the subdural hematoma with a left midline shift. She had a craniotomy and evacuation of the hematoma and did well; however several days later, she had change in neurologic status and reaccumulation of fluid in her brain which was drained surgically. She has been doing well in the hospital subsequently, and has been able to participate in rehabilitative therapies. She is appropriate for inpatient rehabilitation where she will benefit from physical and occupational therapy regarding mobility, balance and activities of daily living and from speech and language pathology regarding cognition. She will also benefit from rehabilitation nursing regarding wound healing, bowel and bladder, fall risk and education regarding neurologic status and medications. She will benefit from the rehabilitation physician regarding pain control and seizure prophylaxis. Her goal is to return home with her family for a safe discharge. It is expected that she will achieve modified independence with mobility including stair climbing, and activities of daily living. It is anticipated that she will have modified independence with cognitive tasks as well. She will have therapy with physical therapy, occupational therapy, and speech and language pathology for 60 minutes per day for each discipline on 5-7 days per week. Her expected duration of stay is 14-16 days. It is anticipated that upon discharge, she will continue to benefit from home health services including speech and language pathology, occupational therapy and physical therapy. She will also benefit from a brain injury support group. ASSESSMENT AND PLAN: 1. 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 Physical and occupational therapy to optimize mobility and activities of daily living. 2. Cognitive impairment and confusion noted in the hospital possibly consistent with a delirium. She will have assessment by Speech and Language Pathology. She will be maintained in a low stimulation environment and be encouraged to have adequate sleep. Sedating medications will be avoided. 3. Risk for seizures. She continues on Levetiracetam, and the duration of anticonvulsant therapy will be determined in followup with Neurosurgery. 4. Thrombocytopenia. This has been evaluated by Hematology/Oncology. One more set of labs is pending, which was a serum protein electrophoresis, but most likely the thrombocytopenia is idiopathic. CBC will be repeated on 2016 to assess for stability of her platelet count. 5. Followup will be per Neurosurgery. Discharge instructions set a date for suture removal of 04/19/2016. 6. Given that she has ambulated as much as 200 feet and other than her age is without other risk factors for deep venous thrombosis, she will not have pharmacologic prophylaxis. This additionally is arnold due to her recent intracranial hemorrhage. She will have JESSE hose and sequential compression devices on her legs at night. /[id number]/MODL MTDD
[2016-04-09] MEDS: levETIRAcetam 500 MG TAB PO SCH (20:42)
[2016-04-09] MEDS: ACETAMINOPHEN 325 MG TAB PO PRN (20:43)
[2016-04-10] MEDS: ACETAMINOPHEN 325 MG TAB PO PRN (08:16)
[2016-04-10] MEDS: CHOLECALCIFEROL VIT D3 1,000 UNITS TAB PO SCH (08:18)
[2016-04-10] MEDS: levETIRAcetam 500 MG TAB PO SCH ×2 (08:18→19:54)
[2016-04-10] MEDS: MULTIVITAMINS 1 EACH TAB PO SCH (08:19)
[2016-04-10] MEDS: SENNOSIDES 1 TAB PO PRN (08:22)
--- NOTE | 2016-04-10 12:14 | SOAPPROG ---
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 Physical and occupational therapy to optimize mobility and activities of daily living. * Cognitive impairment and confusion noted in the hospital possibly consistent with a delirium. She will have assessment by Speech and Language Pathology. She will be maintained in a low stimulation environment and be encouraged to have adequate sleep. Sedating medications will be avoided. * Risk for seizures. She continues on Levetiracetam, and the duration of anticonvulsant therapy will be determined in followup with Neurosurgery. * Thrombocytopenia. This has been evaluated by Hematology/Oncology. One more set of labs is pending, which was a serum protein electrophoresis, but most likely the thrombocytopenia is idiopathic. CBC will be repeated on 04/12/2016 to assess for stability of her platelet count. * Followup will be per Neurosurgery. Discharge instructions set a date for suture removal of 04/19/2016. * Ambulating > 200' and recent ICH: no indication for anticoagulation. Per her request, will d/c SCDs. 04/10/16 13:57 Subjective: No complaints. Requests discontinuation of SCD; o/w slept well. No pain. Hopes to be home for the [facility], 04/15/16. Objective: Vital Signs Temp Pulse Resp BP Pulse Ox 36.9 C 74 16 108/64 94 04/10/16 06:27 04/10/16 06:27 04/10/16 06:27 04/10/16 06:27 04/10/16 06:27 04/09/16 04/10/16 04/11/16 05:59 05:59 05:59 Intake Total 250 780 Output Total 300 200 Balance -50 580 Physical Exam - Physical Exam General Appearance: WD/WN, alert, no apparent distress Respiratory: normal breath sounds, No crackles, No rhonchi, No wheezing Cardiac/Chest: regular rate, rhythm, No edema Skin: normal color, warm/dry Neuro/Psych: no motor/sensory deficits, alert, normal mood/affect, oriented x 3 , cognition abnormalities (word-finding difficulties) ICD10 Worksheet Patient Problems: Problems Problem Status Diagnosed Intracranial hemorrhage Acute SDH (subdural hematoma) Acute Seizures Acute
--- NOTE | 2016-04-10 12:15 | PDOREHIP ---
Admission [facility] - Admission - 3 Day Assessment Period Admission Date/Day 1: 04/09/16 Day 2: 04/10/16 Day 3: 04/11/16 - Active Diagnoses Comorbidities and Co-existing Conditions at Admission: 83786. None of the Above - Skin Conditions Unhealed Pressure Ulcer (1 or more/Stage 1 or >)-Admission: 0. No
[2016-04-11] MEDS: MULTIVITAMINS 1 EACH TAB PO SCH (08:51)
[2016-04-11] MEDS: CHOLECALCIFEROL VIT D3 1,000 UNITS TAB PO SCH (08:51)
[2016-04-11] MEDS: levETIRAcetam 500 MG TAB PO SCH ×2 (08:51→20:56)
--- NOTE | 2016-04-11 13:50 | SOAPPROG ---
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 Initial FIM 95 on 04/11/16. Ready for trial of independent in room during the day. Mccray balance inventory 50/56, working on higher level balance activities. Walked 300' with supervision, climbed 18 stairs, supervision for ADLs Has R hand weakness, ataxia and tremor. Continue Physical and occupational therapy to optimize mobility and activities of daily living. * Cognitive impairment and confusion noted in the hospital. Slow processing is predominant deficit, affects language and other cognitive functions but no actual language deficit. Funciton is worse with distraction or fatigue. 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 She will be maintained in a low stimulation environment and be encouraged to have adequate sleep. * Risk for seizures. She continues on Levetiracetam, and the duration of anticonvulsant therapy will be determined in followup with Neurosurgery. * Thrombocytopenia. This has been evaluated by Hematology/Oncology. One more set of labs is pending, which was a serum protein electrophoresis, but most likely the thrombocytopenia is idiopathic. CBC will be repeated on 04/12/2016 to assess for stability of her platelet count. * Followup will be per Neurosurgery. Discharge instructions set a date for suture removal of 04/19/2016. * Ambulating > 300' and recent ICH: no indication for anticoagulation. Per her request, will d/c SCDs. Attended staffing, 15 min. D/W case mgmt, [facility] case mgmt, nursing, PT, OT, DE ALCOHOLIZER. Tentative discharge date of 04/17/16. 04/11/16 13:45 Subjective: No complaints. Slept well. Not in pain. No cough.dyspnea, f/c. Objective: Vital Signs Temp Pulse Resp BP Pulse Ox 36.8 C 76 16 121/66 H 93 04/10/16 20:00 04/10/16 20:00 04/10/16 20:00 04/10/16 20:00 04/10/16 20:00 04/10/16 04/11/16 04/12/16 05:59 05:59 05:59 Intake Total 250 1710 672 Output Total 300 1000 Balance -50 710 672 - Time Spent With Patient Time Spent With Patient: Greater than 35 minutes floor time today, including more than 50% of time in coordination of care during staffing, and counseling patient. Physical Exam - Physical Exam General Appearance: WD/WN, alert, no apparent distress Respiratory: No respiratory distress, No accessory muscle use Skin: normal color, warm/dry Neuro/Psych: no motor/sensory deficits, alert, normal mood/affect, cognition abnormalities (slow processing) ICD10 Worksheet Patient Problems: Problems Problem Status Diagnosed Intracranial hemorrhage Acute SDH (subdural hematoma) Acute Seizures Acute
[2016-04-11] MEDS: ACETAMINOPHEN 325 MG TAB PO PRN (20:56)
[2016-04-12 09:19] LABS: % IMMATURE GRANULYOCYTES 0.2 % (0.0-1.1); ABSOLUTE IMMATURE GRANULOCYTES 0.01 10^3/uL (0.00-0.10); ADD DIFF? NO; ADD MORPH? NO; ADD SCAN? NO; ATYPICAL LYMPHOCYTE FLAG 20 (0-99); FRAGMENT RBC FLAG 0 (0-99); HEMATOCRIT 38.9 % (38.0-47.0); HEMOGLOBIN 13.5 g/dL (12.6-16.3); LEFT SHIFT FLG 0 (0-99); LIPEMIA HEMOLYSIS FLAG 90 (0-99); MEAN CELL HEMOGLOBIN 32.4 pg (27.9-34.1); MEAN CELL HEMOGLOBIN CONCENTR. 34.7 g/dL (32.4-36.7); MEAN CELL VOLUME 93.3 fL (81.5-99.8); MEAN PLATELET VOLUME 10.6 fL (8.7-11.7); PLATELET CLUMPS FLAG 0 (0-99); PLATELET COUNT 119 10^3/uL (150-400); RED BLOOD CELL COUNT 4.17 10^6/uL (4.18-5.33); RED CELL DISTRIBUTION WIDTH 12.3 % (11.5-15.2)
[2016-04-12] MEDS: levETIRAcetam 500 MG TAB PO SCH ×2 (09:22→21:23)
[2016-04-12] MEDS: MULTIVITAMINS 1 EACH TAB PO SCH (09:22)
[2016-04-12] MEDS: CHOLECALCIFEROL VIT D3 1,000 UNITS TAB PO SCH (09:22)
[2016-04-12] MEDS: SENNOSIDES 1 TAB PO PRN ×2 (09:22→21:24)
--- NOTE | 2016-04-12 11:57 | SOAPPROG ---
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 Initial FIM 95 on 04/11/16. Independent in room during the day. Mccray balance inventory 50/56, working on higher level balance activities. Walked 300' with supervision, climbed 18 stairs, supervision for ADLs Has R hand weakness, ataxia and tremor. Continue Physical and occupational therapy to optimize mobility and activities of daily living. * Cognitive impairment and confusion noted in the hospital. Slow processing is predominant deficit, affects language and other cognitive functions but no actual language deficit. Funciton is worse with distraction or fatigue. 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 She will be maintained in a low stimulation environment and be encouraged to have adequate sleep. * Risk for seizures. She continues on Levetiracetam, and the duration of anticonvulsant therapy will be determined in followup with Neurosurgery. * Thrombocytopenia. This has been evaluated by Hematology/Oncology. Stable on labs 04/12/16 with Plt 119. SPEP wnl; lab studies have not identified etiology. Repeat CBC 04/16/16. * Followup will be per Neurosurgery. Discharge instructions set a date for suture removal of 04/19/2016. * Ambulating > 300' and recent ICH: no indication for anticoagulation. Per her request, will d/c SCDs. Tentative discharge date of 04/17/16.PCP is Gerry Jarrell. Followup with [facility], Dr. Acosta. 04/12/16 11:53 Subjective: No complaints. Denies f/c, cough, dyspnea, n/v/c/d. Not in pain. Objective: Vital Signs Temp Pulse Resp BP Pulse Ox 37 C 64 12 121/68 H 96 04/12/16 08:00 04/12/16 08:00 04/12/16 06:12 04/12/16 06:12 04/12/16 06:12 Laboratory Results 04/12/16 05:00 04/11/16 04/12/16 04/13/16 05:59 05:59 05:59 Intake Total 1710 1144 400 Output Total 1000 900 Balance 710 244 400 Physical Exam - Physical Exam General Appearance: WD/WN, alert, no apparent distress Respiratory: No respiratory distress, No accessory muscle use Skin: normal color, warm/dry Neuro/Psych: no motor/sensory deficits, alert, normal mood/affect, oriented x 3 , cognition abnormalities (mildly delayed responses), other (Minimal tremor R fingers. No bradykinesia or rigidity. Micrographia noted.) ICD10 Worksheet Patient Problems: Problems Problem Status Diagnosed Intracranial hemorrhage Acute SDH (subdural hematoma) Acute Seizures Acute
[2016-04-12] MEDS: ACETAMINOPHEN 325 MG TAB PO PRN (21:25)
[2016-04-13] MEDS: MULTIVITAMINS 1 EACH TAB PO SCH (08:48)
[2016-04-13] MEDS: CHOLECALCIFEROL VIT D3 1,000 UNITS TAB PO SCH (08:48)
[2016-04-13] MEDS: levETIRAcetam 500 MG TAB PO SCH ×2 (08:49→20:16)
--- NOTE | 2016-04-13 14:22 | SOAPPROG ---
SOAP Progress Note Assessment/Plan: Assessment: 65 yo F s/p fall while ice skating 03/10/17 with SDH; returned to hospital with MS changes and gait changes, s/p surgical evacuation of SDH 04/04/16: overall doing well 04/13/2016, with family conference today. Plan below is unchanged. 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 Initial FIM 95 on 04/11/16. Independent in room during the day. Mccray balance inventory 50/56, working on higher level balance activities. Walked 300' with supervision, climbed 18 stairs, supervision for ADLs Has R hand weakness, ataxia and tremor. Continue Physical and occupational therapy to optimize mobility and activities of daily living. * Cognitive impairment and confusion noted in the hospital. Slow processing is predominant deficit, affects language and other cognitive functions but no actual language deficit. Funciton is worse with distraction or fatigue. 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 She will be maintained in a low stimulation environment and be encouraged to have adequate sleep. * Risk for seizures. She continues on Levetiracetam, and the duration of anticonvulsant therapy will be determined in followup with Neurosurgery. * Thrombocytopenia. This has been evaluated by Hematology/Oncology. Stable on labs 04/12/16 with Plt 119. SPEP wnl; lab studies have not identified etiology. Repeat CBC 04/16/16. * Followup will be per Neurosurgery. Discharge instructions set a date for suture removal of 04/19/2016. * Ambulating > 300' and recent ICH: no indication for anticoagulation. Per her request, will d/c SCDs. Tentative discharge date of 04/17/16. PCP is Gerry Jarrell. Followup with [facility], Dr. Acosta. I spent 45 min total with 35 min spent in counseling and coordination of care in family meeting regarding progress in therapies and discharge planning. All medical issues are new to this provider. 04/13/16 14:18 04/13/16 14:24 Subjective: CC: neurological stability and family discharge planning No acute events overnight. sleeping better, participating well in therapies. R hand still has some impaired coordination per her report, ongoing word finding difficulties, slightly better. No new neurological impairments or complaints, no numbness, tingling or weakness. Family meeting with patient, Timi, and team including pharmacy. Objective: Vital Signs Temp Pulse Resp BP Pulse Ox 36.9 C 79 16 109/68 92 04/13/16 06:41 04/13/16 06:41 04/13/16 06:41 04/13/16 06:41 04/13/16 06:41 Laboratory Results 04/12/16 05:00 04/12/16 04/13/16 04/14/16 05:59 05:59 05:59 Intake Total 1144 1390 240 Output Total 900 Balance 244 1390 240 - Pending Discharge Pending Discharge Within 24 Hours: No Pending Discharge Within 48 Hours: No Physical Exam - Physical Exam General Appearance: alert, no apparent distress EENT: No scleral icterus (R), No scleral icterus (L) Respiratory: normal breath sounds, No wheezing Abdomen: non-tender, soft Skin: normal color Extremities: No pedal edema, No swelling Neuro/Psych: alert, normal mood/affect ICD10 Worksheet Patient Problems: Problems Problem Status Diagnosed Impaired cognition Acute Intracranial hemorrhage Acute SDH (subdural hematoma) Acute Seizures Acute - ICD10 Problem Qualifiers (1) Impaired cognition
[2016-04-13] MEDS: ACETAMINOPHEN 325 MG TAB PO PRN (20:16)
[2016-04-14] MEDS: levETIRAcetam 500 MG TAB PO SCH ×2 (08:24→20:25)
[2016-04-14] MEDS: CHOLECALCIFEROL VIT D3 1,000 UNITS TAB PO SCH (08:24)
[2016-04-14] MEDS: MULTIVITAMINS 1 EACH TAB PO SCH (08:25)
--- NOTE | 2016-04-14 17:07 | SOAPPROG ---
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 Initial FIM 95 on 04/11/16. Independent in room during the day. Mccray balance inventory 50/56, working on higher level balance activities. Walked 300' with supervision, climbed 18 stairs, supervision for ADLs Has R hand weakness, ataxia and tremor. Continue Physical and occupational therapy to optimize mobility and activities of daily living. * Cognitive impairment and confusion noted in the hospital. Slow processing is predominant deficit, affects language and other cognitive functions but no actual language deficit. Funciton is worse with distraction or fatigue. 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 She will be maintained in a low stimulation environment and be encouraged to have adequate sleep. * Risk for seizures. She continues on Levetiracetam, and the duration of anticonvulsant therapy will be determined in followup with Neurosurgery. * Thrombocytopenia. This has been evaluated by Hematology/Oncology. Stable on labs 04/12/16 with Plt 119. SPEP wnl; lab studies have not identified etiology. Repeat CBC 04/16/16. * Followup will be per Neurosurgery. Discharge instructions set a date for suture removal of 04/19/2016. * Ambulating > 300' and recent ICH: no indication for anticoagulation. Per her request, will d/c SCDs. Tentative discharge date of 04/17/16. PCP is Gerry Jarrell. Followup with [facility], Dr. Acosta. Subjective: no acute events. no complaints. denies SOB/GONSALEZ/chills. Objective: Vital Signs Temp Pulse Resp BP Pulse Ox 36.7 C 78 17 98/67 L 92 04/14/16 06:32 04/14/16 06:32 04/14/16 06:32 04/14/16 06:32 04/14/16 06:32 Laboratory Results 04/12/16 05:00 04/13/16 04/14/16 04/15/16 05:59 05:59 05:59 Intake Total 9879 121 7753 Balance 1544 859 3723 - Pending Discharge Pending Discharge Within 24 Hours: No Pending Discharge Within 48 Hours: No Physical Exam - Physical Exam General Appearance: alert, no apparent distress Neck: supple Respiratory: lungs clear, normal breath sounds Cardiac/Chest: regular rate, rhythm, No edema Abdomen: normal bowel sounds, non-tender, soft Skin: normal color, warm/dry Neuro/Psych: alert, normal mood/affect, oriented x 3 ICD10 Worksheet Patient Problems: Problems Problem Status Diagnosed Impaired cognition Acute Intracranial hemorrhage Acute SDH (subdural hematoma) Acute Seizures Acute
[2016-04-14] MEDS: ACETAMINOPHEN 325 MG TAB PO PRN (20:25)
--- NOTE | 2016-04-15 08:14 | SOAPPROG ---
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 Initial FIM 95 on 04/11/16. Independent in room during the day. Mccray balance inventory 50/56, working on higher level balance activities. Walked 300' with supervision, climbed 18 stairs, supervision for ADLs Has R hand weakness, ataxia and tremor. Continue Physical and occupational therapy to optimize mobility and activities of daily living. * Cognitive impairment and confusion noted in the hospital. Slow processing is predominant deficit, affects language and other cognitive functions but no actual language deficit. Funciton is worse with distraction or fatigue. Continue SPANISH TRANSLATOR. She will be maintained in a low stimulation environment and be encouraged to have adequate sleep. * Risk for seizures. She continues on Levetiracetam, and the duration of anticonvulsant therapy will be determined in followup with Neurosurgery. * Thrombocytopenia. This has been evaluated by Hematology/Oncology. Stable on labs 04/12/16 with Plt 119. SPEP wnl; lab studies have not identified etiology. Repeat CBC 04/16/16. * Followup will be per Neurosurgery. Discharge instructions set a date for suture removal of 04/19/2016. * Ambulating > 300' and recent ICH: no indication for anticoagulation. Per her request, will d/c SCDs. Tentative discharge date of 04/17/16. PCP is Gerry Jarrell. Followup with [facility], Dr. Acosta. Subjective: no events. no complaints this a.m. doing well and ready for d/c home. denies f/c /bleeding. Objective: Vital Signs Temp Pulse Resp BP Pulse Ox 36.9 C 81 18 105/59 L 92 04/15/16 05:48 04/15/16 05:48 04/15/16 05:48 04/15/16 05:48 04/15/16 05:48 Laboratory Results 04/12/16 05:00 04/14/16 04/15/16 04/16/16 05:59 05:59 05:59 Intake Total 540 1250 Balance 540 1250 - Pending Discharge Pending Discharge Within 24 Hours: No Pending Discharge Within 48 Hours: No Physical Exam - Physical Exam General Appearance: no apparent distress Neck: supple Respiratory: lungs clear, normal breath sounds Cardiac/Chest: regular rate, rhythm Abdomen: non-tender, soft Skin: normal color, warm/dry Neuro/Psych: alert, normal mood/affect, oriented x 3, No motor weakness ICD10 Worksheet Patient Problems: Problems Problem Status Diagnosed Impaired cognition Acute Intracranial hemorrhage Acute SDH (subdural hematoma) Acute Seizures Acute
[2016-04-15] MEDS: CHOLECALCIFEROL VIT D3 1,000 UNITS TAB PO SCH (10:11)
[2016-04-15] MEDS: levETIRAcetam 500 MG TAB PO SCH ×2 (10:11→20:00)
[2016-04-15] MEDS: MULTIVITAMINS 1 EACH TAB PO SCH (10:12)
[2016-04-15] MEDS: SENNOSIDES 1 TAB PO PRN (13:44)
[2016-04-15] MEDS: ACETAMINOPHEN 325 MG TAB PO PRN (20:03)
[2016-04-16] MEDS: CHOLECALCIFEROL VIT D3 1,000 UNITS TAB PO SCH (08:02)
[2016-04-16] MEDS: MULTIVITAMINS 1 EACH TAB PO SCH (08:02)
[2016-04-16] MEDS: levETIRAcetam 500 MG TAB PO SCH ×2 (08:02→20:51)
[2016-04-16 09:12] LABS: HEMATOCRIT 39.3 % (38.0-47.0); HEMOGLOBIN 13.7 g/dL (12.6-16.3); MEAN CELL HEMOGLOBIN 31.9 pg (27.9-34.1); MEAN CELL HEMOGLOBIN CONCENTR. 34.9 g/dL (32.4-36.7); MEAN CELL VOLUME 91.4 fL (81.5-99.8); RED BLOOD CELL COUNT 4.3 10^6/uL (4.18-5.33); RED CELL DISTRIBUTION WIDTH 12.3 % (11.5-15.2)
--- NOTE | 2016-04-16 14:45 | SOAPPROG ---
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 Initial FIM 95 on 04/11/16. Independent in room during the day. Mccray balance inventory 50/56, working on higher level balance activities. Walked 20 minutes outside; PT noted LOB while tying shoe with self-correction. Has R hand weakness, ataxia and tremor. Continue Physical and occupational therapy to optimize mobility and activities of daily living. * Cognitive impairment and confusion noted in the hospital. Slow processing is predominant deficit, affects language and other cognitive functions but no actual language deficit. Function is worse with distraction or fatigue. Much improved and ready for discharge tomorrow. * Risk for seizures. She continues on Levetiracetam, and the duration of anticonvulsant therapy will be determined in followup with Neurosurgery. * Thrombocytopenia. This has been evaluated by Hematology/Oncology. Stable on labs 04/12/16 with Plt 119. SPEP wnl; lab studies have not identified etiology. Repeat CBC 04/16/16 with normal platelet count.. * Followup will be per Neurosurgery. Discharge instructions set a date for suture removal of 04/19/2016. * Ambulating > 300' and recent ICH: no indication for anticoagulation. Per her request, will d/c SCDs. * Visual abnormalities: possible involvement of occipital lobe or optic nerve tracts in TBI. Advise follow-up with ophthalmology after discharge. Discharge date tomorrow 04/17/16.PCP is Gerry Jarrell. Followup with [facility], Dr. Acosta. 04/16/16 14:42 Subjective: No complaints. Was walking outside with PT. Asks if there is any problem with caffeine use post-TBA. Also whether TBI could effect cataract lens replacements. Objective: Vital Signs Temp Pulse Resp BP Pulse Ox 36.9 C 74 16 108/70 97 04/16/16 06:52 04/16/16 06:52 04/16/16 06:52 04/16/16 06:52 04/16/16 06:52 Laboratory Results 04/16/16 07:00 04/15/16 04/16/16 04/17/16 05:59 05:59 05:59 Intake Total 1250 1586 236 Balance 1250 1586 236 Physical Exam - Physical Exam General Appearance: WD/WN, alert, no apparent distress Respiratory: No respiratory distress, No accessory muscle use Skin: normal color, warm/dry Neuro/Psych: no motor/sensory deficits, alert, normal mood/affect, oriented x 3 , No abnormal gait ICD10 Worksheet Patient Problems: Problems Problem Status Diagnosed Impaired cognition Acute Intracranial hemorrhage Acute SDH (subdural hematoma) Acute Seizures Acute
[2016-04-16] MEDS: ACETAMINOPHEN 325 MG TAB PO PRN (20:51)
[2016-04-17 06:45] VITALS: BP 108/66; PULSE 81; RESP 15; TEMP 98; O2SAT 95
[2016-04-17] MEDS: levETIRAcetam 500 MG TAB PO SCH (08:38)
[2016-04-17] MEDS: MULTIVITAMINS 1 EACH TAB PO SCH (08:38)
[2016-04-17] MEDS: CHOLECALCIFEROL VIT D3 1,000 UNITS TAB PO SCH (08:38)
--- NOTE | 2016-04-17 17:32 | GDS ---
[f rep st] DISCHARGE SUMMARY ADMITTING DIAGNOSIS: Subdural hematoma, status post craniotomy. DISCHARGE DIAGNOSIS: Subdural hematoma, status post craniotomy. CONSULTATIONS: There were none. PROCEDURES: There were none. COMPLICATIONS: There were none. HISTORY AND HOSPITAL COURSE: The patient initially came to the hospital on after having a fall and a seizure while she was ice skating. She had a head CT, as well as MRI and MR angiogram. She was found to have an extraaxial hemorrhage along the left frontal convexity with mild mass effect and a left frontal subdural hematoma. She was considered to be stable after 2 days and discharged home on 03/12/2016. She returned to the hospital on 04/02/2016 having had the onset of malaise, word-finding difficulty and a shuffling gait. CT scanning at that time showed a left-sided subdural hematoma with a left-to- right midline shift. She underwent a craniotomy for evacuation of the hematoma. Hospital complications included thrombocytopenia, for which she had extensive laboratory testing which was unrevealing regarding connective tissue disease, autoimmune or chronic viral infection, or abnormal serum protein electrophoresis. She received a platelet transfusion and her platelets remained stable. On postoperative days 2 and 3 she had further mental status decline. She had increased fluid collection on a head CT and she had additional fluid drained. She did well in inpatient rehabilitation. She recovered mobility very quickly. Her initial Functional [place] Measure (FIM) was 95 on 04/11/2016, which is consistent with assisted living level of care. She was able to be independent without assistance in her room during the day. She had a very mild balance deficit with a Mccray balance inventory of 50/56. By 04/16/2016, she had walked outside on varying surfaces with good endurance for 20 minutes with Physical Therapy. Though she was noted to have loss of balance while tying her shoe, she was able to self-correct. Regarding cognition, her major deficit was slow processing, which affected language and some other cognitive functions. There was however, no actual language deficit. She was noted to function worse if she was distracted or fatigued. She learned to use a log book to augment her memory, and she was functioning well on the day of discharge. She was continued on levetiracetam due to her seizure and this will be continued until followup with Neurosurgery. Regarding her thrombocytopenia, she had serial CBCs which showed resolution of the thrombocytopenia. On 04/12/2016, her platelet count was 119 and on 2016 it had normalized at 175. She complained of some visual abnormalities. She wondered if the fall could have affected her artificial lenses status post cataract surgery. It was advised that she follow up with Ophthalmology regarding cataracts, but also consider an evaluation by Neurosurgery or a neurologist regarding possible occipital lobe involvement. CONDITION UPON DISCHARGE: Good. ACTIVITY: Ad heidi. DIET: Regular date. DATE OF NEXT APPOINTMENT: She is to follow up with Neurosurgery on 04/19/2016. MEDICATIONS AT DISCHARGE: 1. Multivitamin 1 p.o. daily. 2. Cholecalciferol 1000 units p.o. daily. 3. Acetaminophen 650 mg q.4 hours p.r.n. 4. Levetiracetam 750 mg p.o. b.i.d. 5. Senna 1-2 tablets p.o. b.i.d. p.r.n. ISSUES TO BE ADDRESSED AT FOLLOWUP: 1. Cognitive function: She will have outpatient treatment with Speech and Language Pathology, and it is expected her cognition will continue to improve. 2. Visual abnormality: It is advised that she see her floorworker or entertainment director, and then consider further evaluation by potentially a neuroophthalmologist depending on the results of the first evaluation. 3. Thrombocytopenia: Appears to have resolved and her plan is to follow up with [facility]/onc[facility], Dr. Acosta. Copy requested to: Dr Kimberly Garrett /[id number]/MODL MTDD
== END 2016-04-17 12:30 | disposition home or self-care (01) | DRG 87 ==
LOC: BREH 14:32
PROVIDERS: ADMIT Internal Medicine; ATTEND Internal Medicine
DX: S06.5X0A Traumatic subdural hemorrhage without loss of consciousness, initial encounter (principal); R41.0 Disorientation, unspecified; R41.841 Cognitive communication deficit; W01.0XXD Fall on same level from slipping, tripping and stumbling without subsequent striking against object, subsequent encounter; Y93.21 Activity, ice skating; Y92.838 Other recreation area as the place of occurrence of the external cause; Y99.8 Other external cause status; D69.6 Thrombocytopenia, unspecified; H53.10 Unspecified subjective visual disturbances
CPT/HCPCS: 92507-GN; 92522-GN; 97110-GO; 97110-GP; 97112-GO; 97112-GP; 97116-GP; 97162-GP; 97166-GO; 97530-GO; 97530-GP; 97532-GO; 97535-GO; 99366-GO

== ENCOUNTER 2017-09-30 13:42 | Emergency (ER) | payer OTHER ==
[2017-09-30] MEDS ORDERED: NS 1,000 ML IV ONE (13:52)
--- NOTE | 2017-09-30 13:55 | CPEKG ---
Heart Rate: 85 RR Interval: 706 P-R Interval: 152 QRSD Interval: 88 QT Interval: 364 QTC Interval: 433 P Sanborn: 61 QRS Sanborn: 72 T Wave Sanborn: 13 EKG Severity - BORDERLINE ECG - EKG Impression: SINUS RHYTHM EKG Impression: LOW VOLTAGE WITH RIGHT AXIS DEVIATION EKG Impression: Similar to previous Electronically Signed By: Yaya Prakash 30-Sep-2017 14:00:55
--- NOTE | 2017-09-30 13:59 | EDPHY ---
H & P Stated Complaint: SVT CONVERSION Time Seen by Provider: 09/30/17 13:47 HPI/ROS: CHIEF COMPLAINT: SVT HISTORY OF PRESENT ILLNESS: The patient is a 67-year-old female who has no significant cardiac history who developed SVT today. She drank a cup of coffee and then went for a hike and on the way down noticed that her heart was racing. She did not have any chest pain or shortness of breath. Paramedics were called and she was in SVT. They gave her 12 of adenosine and she converted. She is now asymptomatic. She does not have any history of thyroid disease or kidney disease. She does report a history of ITP. She had her liver and platelets tested earlier today at [place]. REVIEW OF SYSTEMS: Constitutional: denies: chills, fever, recent illness, recent injury EENTM: denies: blurred vision, double vision, nose congestion Respiratory: denies: cough, shortness of breath Cardiac: See HPI Gastrointestinal/Abdominal: denies: abdominal pain, diarrhea, nausea, vomiting, blood streaked stools Genitourinary: denies: dysuria, frequency, hematuria, pain Musculoskeletal: denies: joint pain, muscle pain Skin: denies: lesions, rash, jaundice, bruising Neurological: denies: headache, numbness, paresthesia, tingling, dizziness, weakness Hematologic/Lymphatic: denies: blood clots, easy bleeding, easy bruising Immunologic/allergic: denies: HIV/AIDS, transplant EXAM: GENERAL: Well-appearing, well-nourished and in no acute distress. HEAD: Atraumatic, normocephalic. EYES: Pupils equal round and reactive to light, extraocular movements intact, sclera anicteric, conjunctiva are normal. ENT: TMs normal, nares patent, oropharynx clear without exudates. Moist mucous membranes. NECK: Normal range of motion, supple without lymphadenopathy or JVD. LUNGS: Breath sounds clear to auscultation bilaterally and equal. No wheezes rales or rhonchi. HEART: Regular rate and rhythm without murmurs, rubs or gallops. ABDOMEN: Soft, nontender, normoactive bowel sounds. No guarding, no rebound. No masses appreciated. BACK: No CVA tenderness, no spinal tenderness, step-offs or deformities EXTREMITIES: Normal range of motion, no pitting or edema. No clubbing or cyanosis. NEUROLOGICAL: Cranial nerves II through XII grossly intact. Normal speech, normal gait. 5/5 strength, normal movement in all extremities, normal sensation PSYCH: Normal mood, normal affect. SKIN: Warm, dry, normal turgor, no visible rashes or lesions. Source: Patient Exam Limitations: No limitations - Personal History Current Tetanus/Diphtheria Vaccine: Unsure - Medical/Surgical History Hx Asthma: No Hx Chronic Respiratory Disease: No Hx Diabetes: No Hx Cardiac Disease: No Hx Renal Disease: No Hx Cirrhosis: No Hx Alcoholism: No Hx HIV/AIDS: No Hx Splenectomy or Spleen Trauma: No Other PMH: psoriasis, TBI 2016, - Family History Significant Family History: No pertinent family hx - Social History Smoking Status: Never smoked Alcohol Use: Sober Drug Use: None Constitutional: Initial Vital Signs Temperature (C) 36.8 C 09/30/17 13:51 Heart Rate 88 09/30/17 13:51 Respiratory Rate 16 09/30/17 13:51 Blood Pressure 130/100 H 09/30/17 13:51 O2 Sat (%) 96 09/30/17 13:51 O2 Delivery Mode Room Air Allergies/Adverse Reactions: No Known Allergies Allergy (Unverified 04/02/16 21:02) Home Medications: Medication Instructions Recorded Cholecalciferol Vit D3 [Vitamin D3 1,000 units PO DAILY 03/10/16 (*)] Multivitamins [Multivitamin (*)] 1 each PO DAILY 03/10/16 Acetaminophen [Tylenol 325mg (*)] 650 mg PO Q4HRS PRN #0 tab 03/12/16 Sennosides [Senokot] 1 - 2 tab PO BID PRN #0 tab 04/16/16 levETIRAcetam [Keppra 500 mg (*)] 750 mg PO BID #90 tab 04/16/16 Medical Decision Making - Diagnostics EKG Interpretation: An EKG obtained and was read and documented in trace view. Please see trace view for full reading and report. Sinus rhythm, no acute ischemic changes ED Course/Re-evaluation: 2:43 p.m. the patient has no complaints. We discussed the lab work. She is reassured. She declines further workup or testing at this time. Differential Diagnosis: Partial list of the Differential diagnosis considered include but were not limited to; SVT, atrial fibrillation and although unlikely based on the history and physical exam, I also considered acute coronary disease, thyroid abnormality, electrolyte abnormality, infection. I discussed these differential diagnoses and the plan with the patient as well as the usual and expected course. The patient understands that the diagnosis is provisional and that in medicine we are not always correct and that further workup is often warranted. Usual and customary warnings were given. All of the patient's questions were answered. The patient was instructed to return to the emergency department should the symptoms at all worsen or return, otherwise to followup with the physician as we discussed. - Data Points Laboratory Results: Laboratory Results 09/30/17 13:50 09/30/17 13:50 Medications Given: Discontinued Medications Sodium Chloride (Ns) 1,000 mls @ 0 mls/hr IV EDNOW ONE; Wide Open PRN Reason: Protocol Stop: 09/30/17 13:53 Last Admin: 09/30/17 14:04 Dose: 1,000 mls Departure - Departure Disposition: Home, Routine, Self-Care Clinical Impression: Supraventricular tachycardia Condition: Fair Instructions: Supraventricular Tachycardia (ED) Referrals: Patient,NotPresent [Unknown] - As per Instructions Garrick Marte MD [Medical Doctor] - As per Instructions
[2017-09-30 14:12] LABS: PLATELET COUNT 55 10^3/uL (150-400)
[2017-09-30 14:16] LABS: INR 0.9 (0.83-1.16); PROTIME(PATIENT) 12.4 SEC (12.0-15.0)
[2017-09-30 14:56] VITALS: BP 125/93
== END 2017-09-30 14:56 | disposition home or self-care (01) ==
LOC: EDUNIT#
DX: I47.1 Supraventricular tachycardia (principal); E86.9 Volume depletion, unspecified